=== PATIENT | female | born 1990 | race American Indian/Alaskan Native ===

== ENCOUNTER 2020-06-14 15:14 | Emergency (ER) | payer OTHER ==
[2020-06-14 15:27] VITALS: BP 159/95
[2020-06-14] MEDS ORDERED: KETOROLAC 60 MG/2 ML INJ IM ONE (15:41)
[2020-06-14] MEDS ORDERED: predniSONE 20 MG TAB PO ONE (15:41)
--- NOTE | 2020-06-14 16:21 | Emergency Department Report ---
ED Back Pain/Injury HPI - General Chief Complaint: Back Pain/Injury Stated Complaint: BACK PAIN Time Seen by Provider: 06/14/20 15:28 Source: patient Limitations: No Limitations - History of Present Illness Initial Comments: This is a 29-year-old female nontoxic, well nourished in appearance, no acute signs of distress presents to the ED with c/o of acute on chronic lower back pain. Patient stated that the past 2 days she was moving and developed this pain. Patient denies any radiation of pain. Patient denies any injuries or trauma. Denies any bladder or bowel instability. Patient denies any urinary symptoms. Denies any fever, chills, nausea, vomiting, headache, stiff neck, chest pain or shortness of breath. Patient denies any numbness or tingling. Denies any allergies. Denies significant past medical history. MD Complaint: back pain -: days(s) Similar Symptoms Previously: Yes Place: home Radiation: none Severity: mild Severity scale (0 -10): 3 Quality: aching Consistency: intermittent Improves With: immobilization, sitting upright Worsens With: movement, walking Context: while lifting, turning/twisting Associated Symptoms: denies other symptoms. denies: confusion, weakness, chest pain, numbness, difficulty walking, cough, difficulty urinating, diaphoresis, incontinence, fever/chills, constipation, headaches, abdominal pain, loss of appetite, malaise, nausea/vomiting, rash, seizure, shortness of breath, syncope - Related Data Previous Rx's Medication Instructions Recorded Last Taken Type Cyclobenzaprine [Flexeril] 10 mg PO QHS PRN #10 tablet 06/14/20 Unknown Rx Naproxen 500 mg PO Q12H PRN #12 tablet 06/14/20 Unknown Rx Allergies Allergy/AdvReac Type Severity Reaction Status Date / Time No Known Allergies Allergy Verified 06/14/20 15:22 ED Review of Systems ROS: Stated complaint: BACK PAIN Other details as noted in HPI Comment: All other systems reviewed and negative Constitutional: denies: chills, fever Eyes: denies: eye pain, eye discharge, vision change ENT: denies: ear pain, throat pain Respiratory: denies: cough, shortness of breath, wheezing Cardiovascular: denies: chest pain, palpitations Endocrine: no symptoms reported Gastrointestinal: denies: abdominal pain, nausea, diarrhea Genitourinary: denies: urgency, dysuria, discharge Musculoskeletal: back pain. denies: joint swelling, arthralgia Skin: denies: rash, lesions Neurological: denies: headache, weakness, paresthesias Psychiatric: denies: anxiety, depression Hematological/Lymphatic: denies: easy bleeding, easy bruising ED Past Medical Hx - Past Medical History Previous Medical History?: Yes Hx Hypertension: Yes Hx Diabetes: Yes - Surgical History Past Surgical History?: No - Social History Smoking Status: Never Smoker Substance Use Type: None - Medications Home Medications: Home Medications Medication Instructions Recorded Confirmed Last Taken Type Cyclobenzaprine [Flexeril] 10 mg PO QHS PRN #10 tablet 06/14/20 Unknown Rx Naproxen 500 mg PO Q12H PRN #12 tablet 06/14/20 Unknown Rx ED Physical Exam - General Limitations: No Limitations General appearance: alert, in no apparent distress - Head Head exam: Present: atraumatic, normocephalic - Eye Eye exam: Present: normal appearance - Neck Neck exam: Present: normal inspection, full ROM - Respiratory Respiratory exam: Absent: respiratory distress - Cardiovascular Cardiovascular Exam: Present: regular rate - GI/Abdominal GI/Abdominal exam: Present: soft. Absent: distended, tenderness - Extremities Exam Extremities exam: Present: normal inspection, full ROM - Back Exam Back exam: Present: normal inspection, full ROM. Absent: tenderness, CVA tenderness (R), CVA tenderness (L), muscle spasm, paraspinal tenderness, vertebral tenderness, rash noted - Expanded Back Exam Expanded Back exam: Absent: saddle anesthesia Back exam: Negative Straight Leg Raising: Right, Left - Neurological Exam Neurological exam: Present: alert, oriented X3, normal gait - Psychiatric Psychiatric exam: Present: normal affect, normal mood - Skin Skin exam: Present: warm, dry, intact, normal color. Absent: rash ED Course Vital Signs 06/14/20 06/14/20 15:25 15:53 Temperature 98.7 F Pulse Rate 95 H Respiratory 18 18 Rate Blood Pressure 159/95 O2 Sat by Pulse 98 Oximetry - Reevaluation(s) Reevaluation #1: 06/14/20 16:18 Patient is speaking in full sentences with no signs of distress noted. ED Medical Decision Making - Medical Decision Making This is a 29-year-old female that presents with low back strain. Patient is stable was examined by me. There is no spinal tenderness. There is no cauda equina syndrome during examination. No bladder or bowel instability. Patient received Toradol 60 mg IM and prednisone in the ED which stated that her symp toms has resolved and subsided. Patient is discharged with muscle relaxant and Motrin. Patient was instructed not to operate any machinery while taking muscle relaxant as they cause her drowsiness. Patient was referred to Follow-up with a primary care doctor in 3-5 days or if symptoms worsen and continue return to emergency room as soon as possible. At time of discharge, the patient does not seem toxic or ill in appearance. No acute signs of distress noted. Patient agrees to discharge treatment plan of care. No further questions noted by the patient. This chart is dictated with using [employer]ation [employer] Critical care attestation.: If time is entered above; I have spent that time in minutes in the direct care of this critically ill patient, excluding procedure time. ED Disposition Clinical Impression: Low back strain Qualifiers: Encounter type: initial encounter Qualified Code(s): S39.012A - Strain of muscle, fascia and tendon of lower back, initial encounter Disposition: TO HOME OR SELFCARE Is pt being admited?: No Does the pt Need Aspirin: No Condition: Stable Instructions: Lumbar Strain, Cyclobenzaprine tablets Additional Instructions: Follow-up with your primary care doctor in 3-5 days or if symptoms worsen such as bladder or bowel stability, chest pain, short of breath, numbness or tingling sensation in extremities, headache, dizziness, visual changes, nausea vomiting, or abdominal pain, return back to emergency room as was possible. Take naproxen and Flexeril as prescribed. Do not operate heavy machinery while taking Flexeril due to sedation Prescriptions: Cyclobenzaprine [Flexeril] 10 mg PO QHS PRN #10 tablet PRN Reason: Muscle Spasm Naproxen 500 mg PO Q12H PRN #12 tablet PRN Reason: Pain , Severe (7-10) Referrals: PRIMARY CAREMD [Referring] - 3-5 Days SAMMIE PONCE MD [Staff Physician] - 3-5 Days Time of Disposition: 16:21
== END 2020-06-14 16:55 | disposition home or self-care (01) ==
LOC: ED 15:14
DX: S39.012A Strain of muscle, fascia and tendon of lower back, initial encounter (principal); I10 Essential (primary) hypertension; E11.9 Type 2 diabetes mellitus without complications; Z79.899 Other long term (current) drug therapy; X58.XXXA Exposure to other specified factors, initial encounter; Y93.89 Activity, other specified; Y92.89 Other specified places as the place of occurrence of the external cause; Y99.8 Other external cause status
CPT/HCPCS: 96372; 99282; J1885; J7512

== ENCOUNTER 2020-07-05 03:55 | Emergency (ER) | payer OTHER ==
[2020-07-05] MEDS ORDERED: SODIUM CHLORIDE 0.9% 1000 ML 1,000 ML IV ONE (04:17)
[2020-07-05] MEDS ORDERED: FAMOTIDINE 20 MG/2 ML INJ IV ONE (04:26)
[2020-07-05] MEDS ORDERED: ONDANSETRON 4 MG/2 ML INJ IV ONE (04:26)
[2020-07-05] MEDS ORDERED: LIDOCAINE VISCOUS 2% 15 ML ORAL LIQD PO ONE (04:26)
[2020-07-05] MEDS ORDERED: ALUM-MAG HYDROXIDE-SIMETHICONE 200-200-20MG/5ML ORAL LIQD 30 ML PO ONE (04:26)
[2020-07-05 04:56] LABS: Hematocrit 37.6 % (30.3-42.9); Hemoglobin 11.8 gm/dl (10.1-14.3); Mean Corpuscular HGB Conc 31 % (30-34); Mean Corpuscular Volume 59 fl (79-97); Red Blood Count 6.42 M/mm3 (3.65-5.03)
[2020-07-05 04:57] LABS: Basophils # (Auto) 0.1 K/mm3 (0.0-0.1); Basophils % (Auto) 0.8 % (0.0-1.8); Eosinophils # (Auto) 0.1 K/mm3 (0.0-0.4); Lymphocytes # (Auto) 2.4 K/mm3 (1.2-5.4); Lymphocytes % (Auto) 21.9 % (13.4-35.0); Mean Platelet Volume 8.9 fl (6-12); Monocytes # (Auto) 0.6 K/mm3 (0.0-0.8); Monocytes % (Auto) 5.9 % (0.0-7.3); Platelet Count 331 K/mm3 (140-440); Red Cell Distribution Width 16.5 % (13.2-15.2)
[2020-07-05 05:19] LABS: Alanine Aminotransferase 190 units/L (7-56); BUN/Creatinine Ratio 14; Blood Urea Nitrogen 10 mg/dL (7-17)
[2020-07-05 05:20] LABS: Albumin 4.2 g/dL (3.9-5); Hemolysis Index 1
[2020-07-05 05:47] VITALS: BP 162/111
--- NOTE | 2020-07-05 06:41 | Emergency Department Report ---
<LOPEZNORBERTO DRUMMOND - Last Filed: 07/05/20 06:37> ED General Adult HPI - General Chief complaint: High BP Stated complaint: HIGH BP/HIGH BS Source: patient, EMS Mode of arrival: Ambulatory Limitations: No Limitations - History of Present Illness Initial comments: Patient is a 29-year-old -[place] female with a history of hypertension and [id number] diabetes and obesity who presents to the ED with complaint of acute onset persistent lightheadedness, headache, nausea and vomiting, generalized weakness for the last 6 hours. Patient states that prior to arrival in the ED, her symptoms got worse and she decided come to the ED suspecting that her blood sugar was elevated in as well as her blood pressure. Patient states that she has not taken her diabetes medications, Metformin, for over 1 month. Patient states that she had 2 episodes of nausea and vomiting in the last 3 hours and that she started having burning sensation in her epigastric area as well as in her throat suspecting therefore that her acid reflux was getting worse. Patient denies dizziness, syncope, chest pain, shortness of breath, fever, chills, cough, sore throat, diarrhea, dysuria, urinary frequency and urgency, numbness and tingling or weakness of upper and lower extremities bilaterally or hemoptysis. MD Complaint: Lightheadedness; nausea and vomiting, GERD symptoms -: Sudden Location: head, chest, abdomen Radiation: non-radiation Severity scale (0 -10): 4 Quality: aching Consistency: constant Improves with: none Worsens with: none Associated Symptoms: denies other symptoms, loss of appetite, malaise, nausea/vomiting. denies: confusion, chest pain, cough, diaphoresis, fever/chills, headaches, rash, seizure, shortness of breath, syncope, weakness Treatments Prior to Arrival: none - Related Data Previous Rx's Medication Instructions Recorded Last Taken Type Cyclobenzaprine [Flexeril] 10 mg PO QHS PRN #10 tablet 06/14/20 Unknown Rx Naproxen 500 mg PO Q12H PRN #12 tablet 06/14/20 Unknown Rx Famotidine [Pepcid] 20 mg PO BID #60 tablet 07/05/20 Unknown Rx Ondansetron [Zofran Odt] 4 mg PO Q6HR PRN #20 tab.rapdis 07/05/20 Unknown Rx amLODIPine 5 mg PO DAILY #30 tab 07/05/20 Unknown Rx metFORMIN [Glucophage] 1,000 mg PO BID #120 tablet 07/05/20 Unknown Rx Allergies Allergy/AdvReac Type Severity Reaction Status Date / Time No Known Allergies Allergy Verified 06/14/20 15:22 ED Review of Systems Constitutional: malaise. denies: chills, fever, weakness Eyes: denies: eye pain, eye discharge, vision change ENT: denies: ear pain, throat pain Respiratory: denies: cough, shortness of breath, wheezing Cardiovascular: denies: chest pain, palpitations Endocrine: no symptoms reported Gastrointestinal: abdominal pain (Epigastric discomfort), nausea, vomiting. denies: diarrhea Genitourinary: denies: urgency, dysuria, discharge Musculoskeletal: denies: back pain, joint swelling, arthralgia Skin: denies: rash, lesions Neurological: other (Lightheadedness). denies: headache, weakness, paresthesias Psychiatric: denies: anxiety, depression Hematological/Lymphatic: denies: easy bleeding, easy bruising ED Past Medical Hx - Past Medical History Previous Medical History?: Yes Hx Hypertension: Yes Hx Diabetes: Yes - Surgical History Past Surgical History?: Yes Additional Surgical History: tubaligation. hernai repair. left leg at age 9 - Social History Smoking Status: Never Smoker Substance Use Type: None - Medications Home Medications: Home Medications Medication Instructions Recorded Confirmed Last Taken Type Cyclobenzaprine [Flexeril] 10 mg PO QHS PRN #10 tablet 06/14/20 Unknown Rx Naproxen 500 mg PO Q12H PRN #12 tablet 06/14/20 Unknown Rx Famotidine [Pepcid] 20 mg PO BID #60 tablet 07/05/20 Unknown Rx Ondansetron [Zofran Odt] 4 mg PO Q6HR PRN #20 tab.rapdis 07/05/20 Unknown Rx amLODIPine 5 mg PO DAILY #30 tab 07/05/20 Unknown Rx metFORMIN [Glucophage] 1,000 mg PO BID #120 tablet 07/05/20 Unknown Rx ED Physical Exam - General Limitations: No Limitations General appearance: alert, in no apparent distress, anxious, obese - Head Head exam: Present: atraumatic, normocephalic, normal inspection - Eye Eye exam: Present: normal appearance, PERRL, EOMI Pupils: Present: normal accommodation - ENT ENT exam: Present: normal exam, normal orophraynx, mucous membranes moist, TM's normal bilaterally, normal external ear exam - Neck Neck exam: Present: normal inspection, full ROM - Respiratory Respiratory exam: Present: normal lung sounds bilaterally. Absent: respiratory distress, wheezes, rales, stridor, chest wall tenderness, accessory muscle use, decreased breath sounds - Cardiovascular Cardiovascular Exam: Present: regular rate, normal rhythm, normal heart sounds. Absent: systolic murmur, diastolic murmur, rubs, gallop - GI/Abdominal GI/Abdominal exam: Present: soft, normal bowel sounds. Absent: tenderness, guarding, rebound, hyperactive bowel sounds, hypoactive bowel sounds, organomegaly - Extremities Exam Extremities exam: Present: normal inspection, full ROM, normal capillary refill - Back Exam Back exam: Present: normal inspection, full ROM. Absent: tenderness, CVA tenderness (R), CVA tenderness (L), muscle spasm, paraspinal tenderness, vertebral tenderness - Neurological Exam Neurological exam: Present: alert, oriented X3, CN II-XII intact, normal gait, reflexes normal - Psychiatric Psychiatric exam: Present: normal affect, normal mood - Skin Skin exam: Present: warm, dry, intact, normal color. Absent: rash ED Medical Decision Making - Lab Data Result diagrams: 07/05/20 04:22 07/05/20 04:22 - Medical Decision Making This is a 29-year-old -[place] female with a history of hypertension and amg-[id number]-[id number] diabetes and obesity who presents to the ED with complaint of acute onset persistent lightheadedness, headache, nausea and vomiting, generalized weakness for the last 6 hours. Patient states that prior to arrival in the ED, her symptoms got worse and she decided come to the ED suspecting that her blood sugar was elevated in as well as her blood pressure. Patient states that she has not taken her diabetes medications, Metformin, for over 1 month. Patient states that she had 2 episodes of nausea and vomiting in the last 3 hours and that she started having burning sensation in her epigastric area as well as in her throat suspecting therefore that her acid reflux was getting worse. In the ED, patient is alert and oriented x3 and is not in distress. Patient was treated in the ED with antiemetics, antacids and also given normal saline 2 L IV bolus x1. Lab test results were reviewed and showed acute leukocytosis of 11,100, mild hyponatremia 135 mmol/L, hyperglycemia of 394 mg/dL elevated transaminases, AST of 122 and ALT of 190. On reevaluation, patient nausea and vomiting as well as lightheadedness resolved. Patient's final glucose was 276 mg/dL after 2 L of normal saline patientIV bolus. Patient was discharged home on medications including Metformin, antiemetics and antacids. Patient was advised to take her medications as prescribed, drink plen ty of fluids and follow-up with her primary care physician in 5 to 7 days for reevaluation. Patient was advised return to the ED immediately if symptoms get worse. Patient's care was transferred to Ms. Yuan Palmer PA-C at shift change at 0 [phone]. She shall review urinalysis test results and disposition the patient accordingly. - Differential Diagnosis Hyperglycemia; GERD; viral gastroenteritis; UTI; gallstones; dehydration ED Disposition Clinical Impression: Nausea and vomiting in adult patient, Uncontrolled stage 2 hypertension Hyperglycemia due to type 2 diabetes mellitus Qualifiers: Diabetes mellitus penitentiary insulin use: without material planning analyst use Qualified Code(s): E11.65 - Type 2 diabetes mellitus with hyperglycemia GERD (gastroesophageal reflux disease) Qualifiers: Esophagitis presence: esophagitis presence not specified Qualified Code(s): K21.9 - Gastro-esophageal reflux disease without esophagitis Disposition: DC-01 TO HOME OR SELFCARE Is pt being admited?: No Does the pt Need Aspirin: No Condition: Stable Instructions: Food Choices for Gastroesophageal Reflux Disease, Adult, [id number], Nausea and Vomiting, Adult, [id number], Type 2 Diabetes Mellitus, Self Care, Adult, [id number], Hypertension, Adult, [id number], Gastroesophageal Reflux Disease, Adult, [id number]-[id number], Diabetes Mellitus Type 2 in Adults (ED), Hypertension (ED) Additional Instructions: Take medications with food, drink plenty fluids and follow-up with your primary care physician in 7 to 10 days for reevaluation. Return to the ED immediately if symptoms get worse. Prescriptions: amLODIPine 5 mg PO DAILY #30 tab metFORMIN [Glucophage] 1,000 mg PO BID #120 tablet Famotidine [Pepcid] 20 mg PO BID #60 tablet Ondansetron [Zofran Odt] 4 mg PO Q6HR PRN #20 tab.rapdis PRN Reason: Nausea Referrals: [facility] [Provider Group] - 3-5 Days Time of Disposition: 06:49 Print Language: ANGUILLAN <YUAN PALMER - Last Filed: 07/05/20 12:35> ED Review of Systems ROS: Stated complaint: HIGH BP/HIGH BS Other details as noted in HPI ED Course Vital Signs 07/05/20 07/05/20 07/05/20 04:04 04:33 04:35 Temperature 98.2 F Pulse Rate 97 H 94 H Respiratory 18 17 Rate Blood Pressure Blood Pressure 151/99 157/104 [Right] O2 Sat by Pulse 97 98 Oximetry 07/05/20 07/05/20 07/05/20 04:45 05:01 05:15 Temperature Pulse Rate 91 H 87 85 Respiratory 12 20 20 Rate Blood Pressure 157/104 157/104 159/109 Blood Pressure [Right] O2 Sat by Pulse 99 98 96 Oximetry 07/05/20 07/05/20 05:31 05:45 Temperature Pulse Rate 86 83 Respiratory 12 17 Rate Blood Pressure 159/109 162/111 Blood Pressure [Right] O2 Sat by Pulse 98 98 Oximetry ED Medical Decision Making - Lab Data Result diagrams: 07/05/20 04:22 07/05/20 04:22 Lab Results 07/05/20 07/05/20 07/05/20 Range/Units 04:22 04:22 Unknown WBC 11.1 H (4.5-11.0) K/mm3 RBC 6.42 H (3.65-5.03) M/mm3 Hgb 11.8 (10.1-14.3) gm/dl Hct 37.6 (30.3-42.9) % MCV 59 L (79-97) fl MCH 18 L (28-32) pg MCHC 31 (30-34) % RDW 16.5 H (13.2-15.2) % Plt Count 331 (140-440) K/mm3 Lymph % (Auto) 21.9 (13.4-35.0) % [place] % (Auto) 5.9 (0.0-7.3) % Eos % (Auto) 1.0 (0.0-4.3) % Baso % (Auto) 0.8 (0.0-1.8) % Lymph # (Auto) 2.4 (1.2-5.4) K/mm3 [place] # (Auto) 0.6 (0.0-0.8) K/mm3 Eos # (Auto) 0.1 (0.0-0.4) K/mm3 Baso # (Auto) 0.1 (0.0-0.1) K/mm3 Add Manual Diff Complete Seg Neutrophils % 70.4 H (40.0-70.0) % Seg Neutrophils # 7.8 H (1.8-7.7) K/mm3 Sodium 135 L (137-145) mmol/L Potassium 4.1 (3.6-5.0) mmol/L Chloride 98.8 (98-107) mmol/L Carbon Dioxide 25 (22-30) mmol/L Anion Gap 15 mmol/L BUN 10 (7-17) mg/dL Creatinine 0.7 (0.6-1.2) mg/dL Estimated GFR > 60 ml/min BUN/Creatinine Ratio 14 % Glucose 394 H (65-100) mg/dL Calcium 9.0 (8.4-10.2) mg/dL Total Bilirubin 0.40 (0.1-1.2) mg/dL AST 122 H (5-40) units/L ALT 190 H (7-56) units/L Alkaline Phosphatase 85 (35-129) units/L Total Protein 7.8 (6.3-8.2) g/dL Albumin 4.2 (3.9-5) g/dL Albumin/Globulin Ratio 1.2 % Urine Color Yellow (Yellow) Urine Turbidity Clear (Clear) Urine pH 5.0 (5.0-7.0) Ur Specific [place] 1.030 (1.003-1.030) Urine Protein <15 mg/dl (Negative) mg/dL Urine Glucose (UA) >500 (Negative) mg/dL Urine Ketones Negative (Negative) mg/dL Urine Blood Negative (Negative) Urine Nitrite Negative (Negative) Urine Bilirubin Negative (Negative) Urine Urobilinogen < 2.0 (<2.0) mg/dL Ur Leukocyte Esterase Negative (Negative) Urine WBC (Auto) 1.0 (0.0-6.0) /HPF Urine RBC (Auto) 2.0 (0.0-6.0) /HPF U Epithel Cells (Auto) 2.0 (0-13.0) /HPF Urine HCG, Qual Negative (Negative) - Medical Decision Making Patient handed off to me pending UA results. No signs of UTI noted on UA. Blood pressure noted to be elevated, however patient has been off of her meds for 1 month. She denies any neurological symptoms. Refills of her medications provided. Strict return precautions were discussed in detail with patient who verbalized understanding Critical care attestation.: If time is entered above; I have spent that time in minutes in the direct care of this critically ill patient, excluding procedure time. ED Disposition Is pt being admited?: No
[2020-07-05 07:21] LABS: Bilirubin,Urine Negative (Negative); Blood,Urine Negative (Negative); Color,Urine Yellow (Yellow)
[2020-07-05 07:22] LABS: HCG Qualitative,Urine Negative (Negative); Protein,Urine <15 mg/dL mg/dL (Negative); Urobilinogen,Urine < 2.0 mg/dL (<2.0)
[2020-07-05 09:45] LABS: Mucus,Urine FEW /HPF
== END 2020-07-05 08:04 | disposition home or self-care (01) ==
LOC: ED 03:55
DX: E11.65 Type 2 diabetes mellitus with hyperglycemia (principal); K21.9 Gastro-esophageal reflux disease without esophagitis; I10 Essential (primary) hypertension; R11.2 Nausea with vomiting, unspecified; Z98.890 Other specified postprocedural states; Z79.899 Other long term (current) drug therapy
CPT/HCPCS: 36415; 80053; 81001; 81025; 82962; 85025; 96361; 96374; 96375; 99284; J2405; J7030

== ENCOUNTER 2020-09-05 10:08 | Emergency (ER) | payer OTHER ==
[2020-09-05 12:05] LABS: Basophils # (Auto) 0.1 K/mm3 (0.0-0.1); Basophils % (Auto) 0.5 % (0.0-1.8); Eosinophils # (Auto) 0.1 K/mm3 (0.0-0.4); Eosinophils % (Auto) 0.9 % (0.0-4.3); Hematocrit 40.1 % (30.3-42.9); Hemoglobin 12.6 gm/dl (10.1-14.3); Lymphocytes # (Auto) 3.8 K/mm3 (1.2-5.4); Lymphocytes % (Auto) 34.2 % (13.4-35.0); Mean Corpuscular HGB Conc 31 % (30-34); Monocytes # (Auto) 0.9 K/mm3 (0.0-0.8); Monocytes % (Auto) 7.6 % (0.0-7.3); Platelet Count 350 K/mm3 (140-440); Red Blood Count 6.83 M/mm3 (3.65-5.03); Red Cell Distribution Width 16.2 % (13.2-15.2)
[2020-09-05 12:08] LABS: Mean Corpuscular Volume 59 fl (79-97)
--- NOTE | 2020-09-05 12:32 | Emergency Department Report ---
ED Female HPI - General Chief complaint: Urogenital-Female Stated complaint: VAGINAL ITCHING/BURNING Time Seen by Provider: 09/05/20 10:52 Source: patient Mode of arrival: Ambulatory Limitations: No Limitations - History of Present Illness Initial comments: Patient is a 29-year-old female presents emergency room complaints of vaginal itching and burning that began 3 days ago. Patient is concerned that she may have a yeast infection and an outbreak of her genital herpes. She states that she has not been sexually active in several months and does not want prophylactic treatment for gonorrhea or chlamydia. She states that she has some mild lower abdominal discomfort. States that she also has some mild dysuria. She denies any fever, back pain, nausea, vomiting, diarrhea. past medical history of diabetes and hypertension. She reports that she takes 500 mg of metformin twice a day. She states that she takes amlodipine but is not sure of the dose. She has not followed up with her primary care doctor since March. She states that she checked her sugar last night and it was 400. She does not follow the diet for diabetes and currently has a Karina soda. No allergies to medications. - Related Data Previous Rx's Medication Instructions Recorded Last Taken Type Naproxen 500 mg PO Q12H PRN #12 tablet 06/14/20 Unknown Rx Famotidine [Pepcid] 20 mg PO BID #60 tablet 07/05/20 Unknown Rx amLODIPine 5 mg PO DAILY #30 tab 07/05/20 Unknown Rx Miconazole Nitrate [Miconazole 7] 45 gm VG QHS #7 cream.appl 09/05/20 Unknown Rx atenoloL [Tenormin] 25 mg PO DAILY #30 tab 09/05/20 Unknown Rx metFORMIN [Glucophage] 1,000 mg PO BID #120 tablet 09/05/20 Unknown Rx Allergies Allergy/AdvReac Type Severity Reaction Status Date / Time No Known Allergies Allergy Verified 06/14/20 15:22 ED Review of Systems ROS: Stated complaint: VAGINAL ITCHING/BURNING Other details as noted in HPI Comment: All other systems reviewed and negative ED Past Medical Hx - Past Medical History Previous Medical History?: Yes Hx Hypertension: Yes Hx Diabetes: Yes - Surgical History Past Surgical History?: Yes Additional Surgical History: tubaligation. hernai repair. left leg at age 9 - Social History Smoking Status: Never Smoker Substance Use Type: None - Medications Home Medications: Home Medications Medication Instructions Recorded Confirmed Last Taken Type Naproxen 500 mg PO Q12H PRN #12 tablet 06/14/20 09/05/20 Unknown Rx Famotidine [Pepcid] 20 mg PO BID #60 tablet 07/05/20 09/05/20 Unknown Rx amLODIPine 5 mg PO DAILY #30 tab 07/05/20 09/05/20 Unknown Rx Miconazole Nitrate [Miconazole 7] 45 gm VG QHS #7 cream.appl 09/05/20 Unknown Rx atenoloL [Tenormin] 25 mg PO DAILY #30 tab 09/05/20 Unknown Rx metFORMIN [Glucophage] 1,000 mg PO BID #120 tablet 09/05/20 Unknown Rx ED Physical Exam - General Limitations: No Limitations General appearance: alert, in no apparent distress - Head Head exam: Present: atraumatic, normocephalic - Eye Eye exam: Present: normal appearance - ENT ENT exam: Present: mucous membranes moist - Respiratory Respiratory exam: Present: normal lung sounds bilaterally. Absent: respiratory distress, wheezes, rales, rhonchi, stridor, chest wall tenderness, accessory muscle use, decreased breath sounds, prolonged expiratory - Cardiovascular Cardiovascular Exam: Present: regular rate, normal rhythm, normal heart sounds. Absent: systolic murmur, diastolic murmur, rubs, gallop - GI/Abdominal GI/Abdominal exam: Present: soft, tenderness (mild lower), normal bowel sounds. Absent: distended, guarding, rebound, rigid - External exam: Present: erythema, swelling (mild), other (pulley man: gerson wallace PA-C, no blistering or lesions or ulcerations). Absent: lesions, lacerations, ecchymosis, bleeding Speculum exam: Present: erythema, vaginal discharge (white), cervical discharge (white). Absent: vaginal bleeding, foreign body, tissue, laceration Bi-manual exam: Present: normal bi-manual exam. Absent: cervical motion tender sophia, adnexal tenderness, adnexal mass - Neurological Exam Neurological exam: Present: alert, oriented X3 - Psychiatric Psychiatric exam: Present: normal affect, normal mood - Skin Skin exam: Present: warm, dry, intact ED Course Vital Signs 09/05/20 09/05/20 09/05/20 10:50 14:30 15:00 Temperature 98 F Pulse Rate 107 H 114 H 105 H Respiratory 16 20 15 Rate Blood Pressure 159/102 157/96 Blood Pressure 180/128 [Right] O2 Sat by Pulse 98 97 98 Oximetry 09/05/20 09/05/20 09/05/20 15:26 15:30 16:00 Temperature Pulse Rate 108 H 101 H 110 H Respiratory 18 17 Rate Blood Pressure 156/96 161/98 150/96 Blood Pressure [Right] O2 Sat by Pulse 98 95 Oximetry 09/05/20 16:30 Temperature Pulse Rate 107 H Respiratory 22 Rate Blood Pressure 152/89 Blood Pressure [Right] O2 Sat by Pulse 98 Oximetry ED Medical Decision Making - Lab Data Result diagrams: 09/05/20 11:03 09/05/20 11:03 Lab Results 09/05/20 09/05/20 09/05/20 Range/Units 11:03 11:03 11:12 WBC 11.2 H (4.5-11.0) K/mm3 RBC 6.83 H (3.65-5.03) M/mm3 Hgb 12.6 (10.1-14.3) gm/dl Hct 40.1 (30.3-42.9) % MCV 59 L (79-97) fl MCH 18 L (28-32) pg MCHC 31 (30-34) % RDW 16.2 H (13.2-15.2) % Plt Count 350 (140-440) K/mm3 Lymph % (Auto) 34.2 (13.4-35.0) % [place] % (Auto) 7.6 H (0.0-7.3) % Eos % (Auto) 0.9 (0.0-4.3) % Baso % (Auto) 0.5 (0.0-1.8) % Lymph # (Auto) 3.8 (1.2-5.4) K/mm3 [place] # (Auto) 0.9 H (0.0-0.8) K/mm3 Eos # (Auto) 0.1 (0.0-0.4) K/mm3 Baso # (Auto) 0.1 (0.0-0.1) K/mm3 Seg Neutrophils % 56.8 (40.0-70.0) % Seg Neutrophils # 6.4 (1.8-7.7) K/mm3 VBG pH (7.320-7.420) Sodium 133 L (137-145) mmol/L Potassium 4.0 (3.6-5.0) mmol/L Chloride 92.2 L (98-107) mmol/L Carbon Dioxide 24 (22-30) mmol/L Anion Gap 21 mmol/L BUN 12 (7-17) mg/dL Creatinine 0.7 (0.6-1.2) mg/dL Estimated GFR > 60 ml/min BUN/Creatinine Ratio 17 % Glucose 499 H (65-100) mg/dL Calcium 9.9 (8.4-10.2) mg/dL Total Bilirubin 0.50 (0.1-1.2) mg/dL AST 91 H (5-40) units/L ALT 157 H (7-56) units/L Alkaline Phosphatase 140 H (35-129) units/L Total Protein 8.3 H (6.3-8.2) g/dL Albumin 4.3 (3.9-5) g/dL Albumin/Globulin Ratio 1.1 % Urine Color Straw (Yellow) Urine Turbidity Clear (Clear) Urine pH 5.0 (5.0-7.0) Ur Specific Mackey 1.032 H (1.003-1.030) Urine Protein <15 mg/dl (Negative) mg/dL Urine Glucose (UA) >=500 (Negative) mg/dL Urine Ketones Neg (Negative) mg/dL Urine Blood Neg (Negative) Urine Nitrite Neg (Negative) Urine Bilirubin Neg (Negative) Urine Urobilinogen < 2.0 (<2.0) mg/dL Ur Leukocyte Esterase Tr (Negative) Urine WBC (Auto) 3.0 (0.0-6.0) /HPF Urine RBC (Auto) 3.0 (0.0-6.0) /HPF U Epithel Cells (Auto) 2.0 (0-13.0) /HPF Urine Mucus Few /HPF Urine HCG, Qual Negative (Negative) 09/05/20 Range/Units 11:22 WBC (4.5-11.0) K/mm3 RBC (3.65-5.03) M/mm3 Hgb (10.1-14.3) gm/dl Hct (30.3-42.9) % MCV (79-97) fl MCH (28-32) pg MCHC (30-34) % RDW (13.2-15.2) % Plt Count (140-440) K/mm3 Lymph % (Auto) (13.4-35.0) % [place] % (Auto) (0.0-7.3) % Eos % (Auto) (0.0-4.3) % Baso % (Auto) (0.0-1.8) % Lymph # (Auto) (1.2-5.4) K/mm3 [place] # (Auto) (0.0-0.8) K/mm3 Eos # (Auto) (0.0-0.4) K/mm3 Baso # (Auto) (0.0-0.1) K/mm3 Seg Neutrophils % (40.0-70.0) % Seg Neutrophils # (1.8-7.7) K/mm3 VBG pH 7.366 (7.320-7.420) Sodium (137-145) mmol/L Potassium (3.6-5.0) mmol/L Chloride (98-107) mmol/L Carbon Dioxide (22-30) mmol/L Anion Gap mmol/L BUN (7-17) mg/dL Creatinine (0.6-1.2) mg/dL Estimated GFR ml/min BUN/Creatinine Ratio % Glucose (65-100) mg/dL Calcium (8.4-10.2) mg/dL Total Bilirubin (0.1-1.2) mg/dL AST (5-40) units/L ALT (7-56) units/L Alkaline Phosphatase (35-129) units/L Total Protein (6.3-8.2) g/dL Albumin (3.9-5) g/dL Albumin/Globulin Ratio % Urine Color (Yellow) Urine Turbidity (Clear) Urine pH (5.0-7.0) Ur Specific Mackey (1.003-1.030) Urine Protein (Negative) mg/dL Urine Glucose (UA) (Negative) mg/dL Urine Ketones (Negative) mg/dL Urine Blood (Negative) Urine Nitrite (Negative) Urine Bilirubin (Negative) Urine Urobilinogen (<2.0) mg/dL Ur Leukocyte Esterase (Negative) Urine WBC (Auto) (0.0-6.0) /HPF Urine RBC (Auto) (0.0-6.0) /HPF U Epithel Cells (Auto) (0-13.0) /HPF Urine Mucus /HPF Urine HCG, Qual (Negative) Vital Signs 09/05/20 09/05/20 09/05/20 10:50 14:30 15:00 Temperature 98 F Pulse Rate 107 H 114 H 105 H Respiratory 16 20 15 Rate Blood Pressure 159/102 157/96 Blood Pressure 180/128 [Right] O2 Sat by Pulse 98 97 98 Oximetry 09/05/20 09/05/20 09/05/20 15:26 15:30 16:00 Temperature Pulse Rate 108 H 101 H 110 H Respiratory 18 17 Rate Blood Pressure 156/96 161/98 150/96 Blood Pressure [Right] O2 Sat by Pulse 98 95 Oximetry 09/05/20 16:30 Temperature Pulse Rate 107 H Respiratory 22 Rate Blood Pressure 152/89 Blood Pressure [Right] O2 Sat by Pulse 98 Oximetry - Radiology Data Radiology results: report reviewed Ordering Physician: ESTRADA CONNER Date of Service: 09/05/20 Procedure(s): CT abdomen pelvis w con Accession Number(s): [id number] cc: ESTRADA CONNER CT ABDOMEN AND PELVIS WITH CONTRAST INDICATION / CLINICAL INFORMATION: lower abd pain, elevated LFTs. TECHNIQUE: Axial CT images were obtained through the abdomen and pelvis after 100 cc IV contrast. Sagittal and coronal reformatted images. All CT scans at this location are performed using CT dose reduction for ALARA by means of automated exposure control. COMPARISON: None available. FINDINGS: LOWER CHEST: No significant abnormality. LIVER: Mild hepatomegaly with steatosis. No focal lesion. GALLBLADDER: No significant abnormality. BILE DUCTS: No significant abnormality. PANCREAS: No significant abnormality. SPLEEN: No significant abnormality. ADRENALS: No significant abnormality. RIGHT KIDNEY and URETER: No significant abnormality. LEFT KIDNEY and URETER: No significant abnormality. STOMACH and SMALL BOWEL: No significant abnormality. COLON: No significant abnormality. APPENDIX: No significant abnormality. PERITONEUM: No free fluid. No free air. No fluid collection. LYMPH NODES: No significant adenopathy. AORTA and ARTERIES: No significant abnormality. IVC and VEINS: No significant abnormality. URINARY BLADDER: The bladder is mostly empty but grossly unremarkable. REPRODUCTIVE ORGANS: No significant abnormality. ADDITIONAL FINDINGS: None. SKELETAL SYSTEM: No significant abnormality. IMPRESSION: Mild hepatomegaly with steatosis. Otherwise unremarkable exam. No acute inflammatory process is appreciated. Signer Name: Duarte Sunshine Jr, MD Signed: 09/05/2020 3:25 PM Workstation Name: [id number] Transcribed By: TTR Dictated By: DUARTE SUNSHINE JR, MD Electronically Authenticated By: DUARTE SUNSHINE JR, MD Signed Date/Time: 09/05/201524 DD/ 22 TD/TT: - Medical Decision Making Patient is a 29-year-old female presents emergency room complaints of vaginal itching and burning that began 3 days ago. Patient is concerned that she may have a yeast infection and an outbreak of her genital herpes. She states that she has not been sexually active in several months and does not want prophylactic treatment for gonorrhea or chlamydia. She states that she has some mild lower abdominal discomfort. States that she also has some mild dysuria. She denies any fever, back pain, nausea, vomiting, diarrhea. past medical history of diabetes and hypertension. She reports that she takes 500 mg of metformin twice a day. She states that she takes amlodipine but is not sure of the dose. She has not followed up with her primary care doctor since March. She states that she checked her sugar last night and it was 400. She does not follow the diet for diabetes and currently has a Karina soda. No allergies to medications. Initial vitals with significantly elevated blood pressure, improved after medication administration. On exam she has some mild lower abdominal ttp, no guarding, no rigidity, no masses, no peritoneal signs. On pelvic examination she has erythema and mild swelling and white thick vaginal discharge, no CMT, no adnexal tenderness or masses. Labs with glucose of 499 and elevated LFTs. UA with evidence of UTI. Discussed case with Dr. Chris Hernandez, ER attending who advised to order CT abdomen pelvis with IV contrast. CT shows Mild hepatomegaly with steatosis. Otherwise unremarkable exam. No acute inflammatory process is appreciated. Patient given IV fluids and insulin with improvement of her blood glucose to 300. Wet prep with no acute process. G/C sent, patient declines G/C treatment at this time and will await her results. Advised she would need to go to medical records for results of these tests and if positive she would need further treatment. discussed the importance of follow up with pt. discussed strict return precautions. discussed dietary and lifestyle modifications with pt. given miconazole, metformin, atenolol. advised pt Please use medication as prescribed. Increase your fluid intake. Please eat a low sugar diet, do not drink sugary drinks, eat a low carbohydrate diet. Incorporate 30 to 60 minutes of daily exercise. Follow-up with a primary care doctor for better glycemic control. Follow-up with a GI doctor regarding the elevation in your liver numb ers. Return to emergency room for any new or worsening symptoms. Please stop taking amlodipine and begin taking atenolol. Please keep a blood pressure log. Please show this log to your primary care doctor. Critical care attestation.: If time is entered above; I have spent that time in minutes in the direct care of this critically ill patient, excluding procedure time. ED Disposition Clinical Impression: Vaginal itching, Vaginal burning, Hyperglycemia, Elevated LFTs, Hepatic steatosis, Hypertensive urgency Abdominal pain Qualifiers: Abdominal location: lower abdomen, unspecified Qualified Code(s): R10.30 - Lower abdominal pain, unspecified Disposition: - TO HOME OR SELFCARE Is pt being admited?: No Does the pt Need Aspirin: No Condition: Stable Instructions: Hyperglycemia, Carbohydrate Counting for Diabetes Mellitus, Adult, Blood Glucose Monitoring, Adult, Diabetes Mellitus and Exercise Additional Instructions: Please use medication as prescribed. Increase your fluid intake. Please eat a low sugar diet, do not drink sugary drinks, eat a low carbohydrate diet. Incorporate 30 to 60 minutes of daily exercise. Follow-up with a primary care doctor for better glycemic control. Follow-up with a GI doctor regarding the elevation in your liver numbers. Return to emergency room for any new or worsening symptoms. Please stop taking amlodipine and begin taking atenolol. Please keep a blood pressure log. Please show this log to your primary care doctor. Prescriptions: Miconazole Nitrate [Miconazole 7] 45 gm VG QHS #7 cream.appl metFORMIN [Glucophage] 1,000 mg PO BID #120 tablet atenoloL [Tenormin] 25 mg PO DAILY #30 tab Referrals: PRIMARY MD CHARLA [Primary Care Provider] - 2-3 Days SAMMIE PONCE MD [Staff Physician] - 2-3 Days [facility] [Provider Group] - 2-3 Days [facility] [Provider Group] - 2-3 Days Time of Disposition: 17:10 Print Language: PERUVIAN
[2020-09-05 12:33] LABS: Alanine Aminotransferase 157 units/L (7-56); Albumin 4.3 g/dL (3.9-5); BUN/Creatinine Ratio 17; Blood Urea Nitrogen 12 mg/dL (7-17); Calcium 9.9 mg/dL (8.4-10.2); Hemolysis Index 0
[2020-09-05] MEDS ORDERED: INSULIN REGULAR, HUMAN 100 UNITS/1 ML IV ONE (12:37)
[2020-09-05] MEDS ORDERED: SODIUM CHLORIDE 0.9% 1000 ML 1,000 ML IV ONE (12:37)
[2020-09-05 12:44] LABS: Bilirubin,Urine NEG (Negative); Blood,Urine NEG (Negative); Color,Urine Straw (Yellow); Mucus,Urine FEW /HPF; Protein,Urine <15 mg/dL mg/dL (Negative); Urobilinogen,Urine < 2.0 mg/dL (<2.0)
[2020-09-05 12:58] LABS: HCG Qualitative,Urine Negative (Negative)
[2020-09-05] MEDS ORDERED: INSULIN REGULAR, HUMAN 100 UNITS/1 ML ONE (15:05)
--- NOTE | 2020-09-05 15:30 | Cat Scan Report ---
CT ABDOMEN AND PELVIS WITH CONTRAST INDICATION / CLINICAL INFORMATION: lower abd pain, elevated LFTs. TECHNIQUE: Axial CT images were obtained through the abdomen and pelvis after 100 cc IV contrast. Sagittal and c oronal reformatted images. All CT scans at this location are performed using CT dose reduction for AL GERDA by means of automated exposure control. COMPARISON: None available. FINDINGS: LOWER CHEST: No significant abnormality. LIVER: Mild hepatomegaly with steatosis. No focal lesion. GALLBLADDER: No significant abnormality. BILE DUCTS: No significant abnormality. PANCREAS: No significant abnormality. SPLEEN: No significant abnormality. ADRENALS: No significant abnormality. RIGHT KIDNEY and URETER: No significant abnormality. LEFT KIDNEY and URETER: No significant abnormality. STOMACH and SMALL BOWEL: No significant abnormality. COLON: No significant abnormality. APPENDIX: No significant abnormality. PERITONEUM: No free fluid. No free air. No fluid collection. LYMPH NODES: No significant adenopathy. AORTA and ARTERIES: No significant abnormality. IVC and VEINS: No significant abnormality. URINARY BLADDER: The bladder is mostly empty but grossly unremarkable. REPRODUCTIVE ORGANS: No significant abnormality. ADDITIONAL FINDINGS: None. SKELETAL SYSTEM: No significant abnormality. IMPRESSION: Mild hepatomegaly with steatosis. Otherwise unremarkable exam. No acute inflammatory process is appr eciated. Signer Name: Duarte Sunshine Jr, MD Signed: 09/05/2020 3:25 PM Workstation Name: [id number]
[2020-09-05 16:32] VITALS: BP 152/89
== END 2020-09-05 18:08 | disposition home or self-care (01) ==
LOC: ED 10:08
DX: E11.65 Type 2 diabetes mellitus with hyperglycemia (principal); K76.0 Fatty (change of) liver, not elsewhere classified; R79.89 Other specified abnormal findings of blood chemistry; I16.0 Hypertensive urgency; L29.9 Pruritus, unspecified; R10.30 Lower abdominal pain, unspecified; Z98.890 Other specified postprocedural states; Z79.84 Long term (current) use of oral hypoglycemic drugs; Z79.899 Other long term (current) drug therapy
CPT/HCPCS: 36415; 74177; 80053; 81001; 81025; 82805; 82962; 85025; 87210; 87591; 96361; 96374; 99285; J7030; Q9967; J1815

== ENCOUNTER 2020-09-20 22:25 | Emergency (ER) | payer OTHER ==
--- NOTE | 2020-09-21 03:00 | Emergency Department Report ---
ED General Adult HPI - General Chief complaint: Neck Pain/Injury Stated complaint: LUMP ON NECK/ Time Seen by Provider: 09/21/20 02:49 Source: patient Mode of arrival: Ambulatory Limitations: No Limitations - History of Present Illness Initial comments: 30-year-old female patient with history of diabetes presents to the emergency department with complaints of painful swelling to the right side of her neck starting 2 days ago. No preceding fall, trauma, or injury. No current steroid or antibiotic use. No recent travel. Patient has not taken any medications. No known sick contacts. Denies fever, chills, neck stiffness, rash, sore throat, purulent drainage. Denies all other complaints at this time. - Related Data Previous Rx's Medication Instructions Recorded Last Taken Type Naproxen 500 mg PO Q12H PRN #12 tablet 06/14/20 Unknown Rx Famotidine [Pepcid] 20 mg PO BID #60 tablet 07/05/20 Unknown Rx amLODIPine 5 mg PO DAILY #30 tab 07/05/20 Unknown Rx Miconazole Nitrate [Miconazole 7] 45 gm VG QHS #7 cream.appl 09/05/20 Unknown Rx atenoloL [Tenormin] 25 mg PO DAILY #30 tab 09/05/20 Unknown Rx metFORMIN [Glucophage] 1,000 mg PO BID #120 tablet 09/05/20 Unknown Rx cephALEXin [Keflex] 500 mg PO Q8HR 5 Days cap 09/21/20 Unknown Rx Allergies Allergy/AdvReac Type Severity Reaction Status Date / Time No Known Allergies Allergy Verified 06/14/20 15:22 ED Review of Systems ROS: Stated complaint: LUMP ON NECK/ Other details as noted in HPI Other: GENERAL: Negative for fever. CARDIOVASCULAR: Negative for chest pain. PULMONARY: Negative for shortness of breath. GASTROINTESTINAL: Negative for abdominal pain. MUSCULOSKELETAL: Negative for back pain. NEUROLOGICAL: Negative for headache. INTEGUMENTARY: Positive for painful swelling ED Past Medical Hx - Past Medical History Previous Medical History?: Yes Hx Hypertension: Yes Hx Diabetes: Yes - Surgical History Past Surgical History?: Yes Additional Surgical History: tubaligation. hernai repair. left leg at age 9 - Social History Smoking Status: Current Every Day Smoker Substance Use Type: None - Medications Home Medications: Home Medications Medication Instructions Recorded Confirmed Last Taken Type Naproxen 500 mg PO Q12H PRN #12 tablet 06/14/20 09/05/20 Unknown Rx Famotidine [Pepcid] 20 mg PO BID #60 tablet 07/05/20 09/05/20 Unknown Rx amLODIPine 5 mg PO DAILY #30 tab 07/05/20 09/05/20 Unknown Rx Miconazole Nitrate [Miconazole 7] 45 gm VG QHS #7 cream.appl 09/05/20 Unknown Rx atenoloL [Tenormin] 25 mg PO DAILY #30 tab 09/05/20 Unknown Rx metFORMIN [Glucophage] 1,000 mg PO BID #120 tablet 09/05/20 Unknown Rx cephALEXin [Keflex] 500 mg PO Q8HR 5 Days cap 09/21/20 Unknown Rx ED Physical Exam - General Limitations: No Limitations - Other Other exam information: General: Awake, appropriately interactive, no acute distress. Neck: Supple. Full range of motion intact. Cardiovascular: Normal peripheral perfusion. Pulmonary: No respiratory distress. Patient is speaking normally without use of accessory muscles. Skin: Small papule noted to the right anterior neck with minimal surrounding erythema. No fluctuance. No purulent drainage. No regional lymphadenopathy. No crepitus. No streaking erythema. Neurological: No facial asymmetry. Speech is clear. Follows commands. Patient is alert and oriented. Musculoskeletal: Moves all four extremities spontaneously with normal range of motion. Psych: Cooperative. Appropriate mood and affect. ED Course Vital Signs 09/20/20 09/21/20 23:52 03:19 Temperature 98.6 F 98.2 F Pulse Rate 92 H 76 Respiratory 16 16 Rate Blood Pressure 158/106 Blood Pressure 152/85 [Left] O2 Sat by Pulse 99 100 Oximetry ED Medical Decision Making - Medical Decision Making Differential diagnosis including but not limited to: abscess, cellulitis, insect bite, necrotizing soft tissue infection, mumps, tinea corporis Patient presents to the emergency department with complaints of painful swelling to the right side of her neck. She is afebrile, hemodynamically stable, no respiratory distress. There is no regional lymphadenopathy. Pain is appropriately proportional to exam findings. History and exam findings suggestive of nonpurulent cellulitis. Suspect the infection may have started as an insect bite. No MRSA risk factors identified on history. Patient will be discharged home with Keflex per current IDSA guidelines and referred to primary care provider for close outpatient follow-up. Patient expressed understanding and is agreeable to plan of care. Strict return precautions provided. History, exam, diagnostic testing, and current condition do not suggest worrisome pathology to warrant further testing, continued ED treatment, admission, or surgical evaluation at this point. Given the low probability of a significant medical illness, it would be more likely to result in harm than benefit to perform further testing at this stage. Discussed findings, presumptive diagnosis, need for follow-up and specific signs/symptoms that should prompt immediate return to the emergency department. Instructions were explained in detail to the patient in addition to giving written discharge information. Patient expressed understanding and was given the opportunity to ask questions, all of which were satisfactorily answered prior to discharge home. Critical care attestation.: If time is entered above; I have spent that time in minutes in the direct care of this critically ill patient, excluding procedure time. ED Disposition Clinical Impression: Cellulitis, neck Disposition: DC-01 TO HOME OR SELFCARE Is pt being admited?: No Does the pt Need Aspirin: No Condition: Stable Instructions: Cellulitis, Adult Additional Instructions: Take Tylenol every 4 hours and Motrin every 8 hours as needed for pain. Take Keflex with food as directed. Increase your dietary intake of probiotic rich foods while taking his medications. Apply warm compresses to affected area. Follow-up with primary care provider this week. Call Wednesday to schedule an appointment. See referral information below. Return to the emergency department immediately for new or worsening symptoms. Prescriptions: cephALEXin [Keflex] 500 mg PO Q8HR 5 Days cap Referrals: SAMMIE PONCE MD [Staff Physician] - 3-5 Days [facility] [Outside] - 3-5 Days [facility] [Outside] - 3-5 Days [facility] [Outside] - 3-5 Days [facility] [Provider Group] - 3-5 Days Time of Disposition: 03:02
[2020-09-21 03:20] VITALS: BP 152/85
== END 2020-09-21 03:21 | disposition home or self-care (01) ==
LOC: ED 22:25
DX: L03.221 Cellulitis of neck (principal); I10 Essential (primary) hypertension; E11.9 Type 2 diabetes mellitus without complications; F17.200 Nicotine dependence, unspecified, uncomplicated; Z98.51 Tubal ligation status; Z98.890 Other specified postprocedural states; Z79.84 Long term (current) use of oral hypoglycemic drugs; Z79.899 Other long term (current) drug therapy
CPT/HCPCS: 99282

== ENCOUNTER 2020-12-21 22:40 | Emergency (ER) | payer MEDICAID, OTHER ==
[2020-12-21 23:54] VITALS: BP 151/106
[2020-12-22] MEDS ORDERED: ACETAMINOPHEN 500 MG TAB PO ONE (00:38)
[2020-12-22 00:56] LABS: Basophils # (Auto) 0.1 K/mm3 (0.0-0.1); Basophils % (Auto) 0.7 % (0.0-1.8); Eosinophils # (Auto) 0.2 K/mm3 (0.0-0.4); Eosinophils % (Auto) 1.7 % (0.0-4.3); Hematocrit 38.4 % (30.3-42.9); Hemoglobin 12.1 gm/dl (10.1-14.3); Lymphocytes # (Auto) 3.4 K/mm3 (1.2-5.4); Lymphocytes % (Auto) 33.9 % (13.4-35.0); Mean Corpuscular HGB Conc 31 % (30-34); Monocytes # (Auto) 0.8 K/mm3 (0.0-0.8); Monocytes % (Auto) 7.7 % (0.0-7.3); Platelet Count 312 K/mm3 (140-440); Red Blood Count 6.54 M/mm3 (3.65-5.03); Red Cell Distribution Width 16.2 % (13.2-15.2)
[2020-12-22 00:59] LABS: Mean Corpuscular Volume 59 fl (79-97)
[2020-12-22 01:19] LABS: Alanine Aminotransferase 190 units/L (7-56); Albumin 4.1 g/dL (3.9-5); Blood Urea Nitrogen 9 mg/dL (7-17); Calcium 9.6 mg/dL (8.4-10.2); Hemolysis Index 6
[2020-12-22 01:22] LABS: BUN/Creatinine Ratio 13
[2020-12-22 02:08] LABS: Bacteria,Urine 1+ /HPF (Negative); Bilirubin,Urine NEG (Negative); Blood,Urine LG (Negative); Color,Urine Amber (Yellow); Mucus,Urine FEW /HPF; Urobilinogen,Urine < 2.0 mg/dL (<2.0)
[2020-12-22 02:10] LABS: HCG Qualitative,Urine Negative (Negative); RBC,Urine > 182.0 /HPF (0.0-6.0)
[2020-12-22] MEDS ORDERED: cephALEXin 500 MG CAP PO ONE (02:21)
--- NOTE | 2020-12-22 02:26 | Emergency Department Report ---
ED Female HPI - General Chief complaint: Vaginal Bleeding Stated complaint: CRAMPING AND BLEEDING,? Source: patient Mode of arrival: Ambulatory Limitations: No Limitations - History of Present Illness Initial comments: Patient is a A1 30-year-old -[place] female with past medical history of jip-[id number] diabetes who presents to the ED with complaint of acute onset persistent pelvic and suprapubic pain for the last 3 days and vaginal bleeding for the last 12 hours. Patient states that her LMP was 11/06/2020. Patient states that the pain is constant, sharp and worse with movement. Patient states that she had a positive urine qualitative hCG test at home 2 days ago. Patient states that she came to the ED for evaluation as to whether she may be having a miscarriage. Patient denies dizziness, syncope, fever, chills, nausea, vomiting, dyspareunia, urinary frequency and urgency, low back pain, chest pain or shortness of breath and sore throat. MD Complaint: vaginal bleeding, pelvic pain -: Sudden, days(s) (2) Location: suprapubic Radiation: non-radiating Severity: severe Severity scale (0 -10): 7 Quality: sharp, aching Consistency: constant Improves with: none Worsens with: movement Are you Now?: Yes (Positive urine hCG test at home) Last Menstrual Period: 12/06/20 EDC: 09/12/21 Associated Symptoms: denies other symptoms, vaginal bleeding, abdominal pain (Suprapubic pain). denies: vaginal discharge, nausea/vomiting, fever/chills, headaches, loss of appetite, dysuria, hematuria, rash, seizure, shortness of breath, syncope, weakness - Related Data Sexually active: Yes : 4 Para: 3 A: 1 Previous Rx's Medication Instructions Recorded Last Taken Type Naproxen 500 mg PO Q12H PRN #12 tablet 06/14/20 Unknown Rx Famotidine [Pepcid] 20 mg PO BID #60 tablet 07/05/20 Unknown Rx amLODIPine 5 mg PO DAILY #30 tab 07/05/20 Unknown Rx Miconazole Nitrate [Miconazole 7] 45 gm VG QHS #7 cream.appl 09/05/20 Unknown Rx atenoloL [Tenormin] 25 mg PO DAILY #30 tab 09/05/20 Unknown Rx metFORMIN [Glucophage] 1,000 mg PO BID #120 tablet 09/05/20 Unknown Rx cephALEXin [Keflex] 500 mg PO Q8HR 5 Days cap 09/21/20 Unknown Rx Ibuprofen [Motrin] 800 mg PO Q8HR PRN #30 tablet 12/22/20 Unknown Rx cephALEXin [Keflex] 500 mg PO Q8HR #30 cap 12/22/20 Unknown Rx Allergies Allergy/AdvReac Type Severity Reaction Status Date / Time No Known Allergies Allergy Verified 06/14/20 15:22 ED Review of Systems ROS: Stated complaint: CRAMPING AND BLEEDING,? Other details as noted in HPI Constitutional: denies: chills, fever Eyes: denies: eye pain, eye discharge, vision change ENT: denies: ear pain, throat pain Respiratory: denies: cough, shortness of breath, wheezing Cardiovascular: denies: chest pain, palpitations Endocrine: no symptoms reported Gastrointestinal: abdominal pain (Suprapubic pain). denies: nausea, vomiting, diarrhea Genitourinary: abnormal menses (Vaginal bleeding). denies: urgency, dysuria, frequency, hematuria, discharge, dyspareunia Musculoskeletal: denies: back pain, joint swelling, arthralgia Skin: denies: rash, lesions Neurological: denies: headache, weakness, paresthesias Psychiatric: denies: anxiety, depression Hematological/Lymphatic: denies: easy bleeding, easy bruising ED Past Medical Hx - Past Medical History Previous Medical History?: Yes Hx Hypertension: Yes Hx Diabetes: Yes - Surgical History Past Surgical History?: Yes Additional Surgical History: tubaligation. hernai repair. left leg at age 9 - Social History Smoking Status: Current Every Day Smoker Substance Use Type: None - Medications Home Medications: Home Medications Medication Instructions Recorded Confirmed Last Taken Type Naproxen 500 mg PO Q12H PRN #12 tablet 06/14/20 09/05/20 Unknown Rx Famotidine [Pepcid] 20 mg PO BID #60 tablet 07/05/20 09/05/20 Unknown Rx amLODIPine 5 mg PO DAILY #30 tab 07/05/20 09/05/20 Unknown Rx Miconazole Nitrate [Miconazole 7] 45 gm VG QHS #7 cream.appl 09/05/20 Unknown Rx atenoloL [Tenormin] 25 mg PO DAILY #30 tab 09/05/20 Unknown Rx metFORMIN [Glucophage] 1,000 mg PO BID #120 tablet 09/05/20 Unknown Rx cephALEXin [Keflex] 500 mg PO Q8HR 5 Days cap 09/21/20 Unknown Rx Ibuprofen [Motrin] 800 mg PO Q8HR PRN #30 tablet 12/22/20 Unknown Rx cephALEXin [Keflex] 500 mg PO Q8HR #30 cap 12/22/20 Unknown Rx ED Physical Exam - General Limitations: No Limitations General appearance: alert, in no apparent distress - Head Head exam: Present: atraumatic, normocephalic, normal inspection - Eye Eye exam: Present: normal appearance, PERRL, EOMI Pupils: Present: normal accommodation - ENT ENT exam: Present: normal exam, normal orophraynx, mucous membranes moist, TM's normal bilaterally, normal external ear exam - Neck Neck exam: Present: normal inspection, full ROM - Respiratory Respiratory exam: Present: normal lung sounds bilaterally. Absent: respiratory distress, wheezes, rales, chest wall tenderness, accessory muscle use, decreased breath sounds, prolonged expiratory - Cardiovascular Cardiovascular Exam: Present: regular rate, normal rhythm, normal heart sounds. Absent: systolic murmur, diastolic murmur, rubs, gallop - GI/Abdominal GI/Abdominal exam: Present: soft, tenderness (Palpable mild suprapubic tenderness), normal bowel sounds. Absent: guarding, rebound, hyperactive bowel sounds, hypoactive bowel sounds, mass, pulsatile mass - Bi-manual exam: Present: other (Pelvic examination deferred at this time) - Extremities Exam Extremities exam: Present: normal inspection, full ROM, normal capillary refill - Back Exam Back exam: Present: normal inspection, full ROM. Absent: tenderness, CVA tenderness (L), muscle spasm, paraspinal tenderness - Neurological Exam Neurological exam: Present: alert, oriented X3, CN II-XII intact, normal gait, reflexes normal - Psychiatric Psychiatric exam: Present: normal affect, normal mood - Skin Skin exam: Present: warm, dry, intact, normal color. Absent: rash ED Course Vital Signs 12/21/20 23:53 Temperature 98.2 F Pulse Rate 84 Respiratory 18 Rate Blood Pressure 151/106 [Right] O2 Sat by Pulse 99 Oximetry ED Medical Decision Making - Lab Data Result diagrams: 12/22/20 00:40 12/22/20 00:40 - Medical Decision Making This is a A1 30-year-old -[place] female with past medical history of sua-febrygs-jwigknfhw diabetes who presents to the ED with complaint of acute onset persistent pelvic and suprapubic pain for the last 3 days and vaginal bleeding for the last 12 hours. Patient states that her LMP was 11/06/2020. Patient states that the pain is constant, sharp and worse with movement. Patient states that she had a positive urine qualitative hCG test at home 2 days ago. Patient states that she came to the ED for evaluation as to whether she may be having a miscarriage. In the ED, patient is alert and oriented x3 and is not in any distress. Patient was treated for pain in the ED with Tylenol. All lab test results were reviewed and serum hCG quant was negative. Urinalysis showed significant urinary tract infection with positive nitrites, >44 WBCs and large amount of blood, and 1+ bacteriuria. Patient was also given initial oral antibiotic in the ED Keflex 1 g p.o. x1. On reevaluation, patient's pain is well controlled medications. Patient discharged home on pain medications and advised to follow-up with her primary care physician or [facility] physician in 7 to 10 days for reevaluation or return to the ED immediately if symptoms get worse. - Differential Diagnosis Dysmenorrhea; ; ovarian cyst; UTI; subchorionic bleed Critical care attestation.: If time is entered above; I have spent that time in minutes in the direct care of this critically ill patient, excluding procedure time. ED Disposition Clinical Impression: Severe dysmenorrhea, Acute urinary tract infection, Negative test Disposition: 01 HOME / SELF CARE / HOMELESS Is pt being admited?: No Does the pt Need Aspirin: No Condition: Stable Instructions: Urinary Tract Infection, Adult, Jagj-[id number], Dysmenorrhea, [id number] Additional Instructions: All lab test results were reviewed and are all nonactionable except for urinalysis that showed significant urinary tract infection. Your urine test was negative, and serum hCG quantitative test was also negative. Therefore your symptoms are likely due to dysmenorrhea or urinary tract infection. Therefore take medications as needed for pain, take the antibiotics until finished, and follow-up with your primary care physician or [facility] [employer] physici an in 7 to 10 days for reevaluation. Return to the ED immediately if symptoms get worse. Prescriptions: cephALEXin [Keflex] 500 mg PO Q8HR #30 cap Ibuprofen [Motrin] 800 mg PO Q8HR PRN #30 tablet PRN Reason: Pain , Severe (7-10) Referrals: [facility] [Provider Group] - 7-10 days Time of Disposition: 02:29 Print Language: IRISH
== END 2020-12-22 04:06 | disposition home or self-care (01) ==
LOC: ED 22:40
DX: N94.6 Dysmenorrhea, unspecified (principal); N39.0 Urinary tract infection, site not specified; Z32.02 Encounter for pregnancy test, result negative; I10 Essential (primary) hypertension; E11.8 Type 2 diabetes mellitus with unspecified complications
CPT/HCPCS: 36415; 80053; 81001; 81025; 84702; 85025; 86900; 86901; 87086; 99283

== ENCOUNTER 2021-01-28 07:57 | Emergency (ER) | payer MEDICAID ==
[2021-01-28 08:05] VITALS: BP 148/99
--- NOTE | 2021-01-28 08:10 | Emergency Department Report ---
ED Extremity Problem HPI - General Chief complaint: Extremity Injury, Lower Stated complaint: FALL Time Seen by Provider: 01/28/21 08:00 Source: patient Mode of arrival: Ambulatory Limitations: Physical Limitation - History of Present Illness Initial comments: Is a pleasant 30-year-old female who presents the emergency department chief complaint of left lateral and anterior ankle pain since this morning. She reports she was running to try and catch the bus when she stepped in a pothole and inverted her left ankle. States she has been having pain when she ambulates or bears weight since. She denies any other injuries. Denies hitting her head or losing consciousness. She rates severity of her pain is a 5 out of 10 describes as dull and throbbing. She denies any associated fever, chills, night sweats, headache, dizziness, blurry vision, nausea, vomiting, diarrhea, chest pain, shortness of breath, weakness or any other associated symptoms. - Related Data Previous Rx's Medication Instructions Recorded Last Taken Type Naproxen 500 mg PO Q12H PRN #12 tablet 06/14/20 Unknown Rx Famotidine [Pepcid] 20 mg PO BID #60 tablet 07/05/20 Unknown Rx amLODIPine 5 mg PO DAILY #30 tab 07/05/20 Unknown Rx Miconazole Nitrate [Miconazole 7] 45 gm VG QHS #7 cream.appl 09/05/20 Unknown Rx atenoloL [Tenormin] 25 mg PO DAILY #30 tab 09/05/20 Unknown Rx metFORMIN [Glucophage] 1,000 mg PO BID #120 tablet 09/05/20 Unknown Rx cephALEXin [Keflex] 500 mg PO Q8HR 5 Days cap 09/21/20 Unknown Rx Ibuprofen [Motrin] 800 mg PO Q8HR PRN #30 tablet 12/22/20 Unknown Rx cephALEXin [Keflex] 500 mg PO Q8HR #30 cap 12/22/20 Unknown Rx Naproxen 500 mg PO BID #20 tablet 01/28/21 Unknown Rx Allergies Allergy/AdvReac Type Severity Reaction Status Date / Time No Known Allergies Allergy Verified 01/28/21 08:02 ED Review of Systems ROS: Stated complaint: FALL Other details as noted in HPI Comment: All other systems reviewed and negative Constitutional: denies: chills, fever Eyes: denies: eye pain, eye discharge, vision change ENT: denies: ear pain, throat pain Respiratory: denies: cough, shortness of breath, wheezing Cardiovascular: denies: chest pain, palpitations Endocrine: no symptoms reported Gastrointestinal: denies: abdominal pain, nausea, diarrhea Genitourinary: denies: urgency, dysuria, discharge Musculoskeletal: as per HPI, arthralgia. denies: back pain, joint swelling Skin: denies: rash, lesions Neurological: denies: headache, weakness, paresthesias Psychiatric: denies: anxiety, depression Hematological/Lymphatic: denies: easy bleeding, easy bruising ED Past Medical Hx - Past Medical History Hx Hypertension: Yes Hx Diabetes: Yes - Surgical History Additional Surgical History: tubaligation. hernai repair. left leg at age 9 - Social History Smoking Status: Current Every Day Smoker Substance Use Type: None - Medications Home Medications: Home Medications Medication Instructions Recorded Confirmed Last Taken Type Naproxen 500 mg PO Q12H PRN #12 tablet 06/14/20 09/05/20 Unknown Rx Famotidine [Pepcid] 20 mg PO BID #60 tablet 07/05/20 09/05/20 Unknown Rx amLODIPine 5 mg PO DAILY #30 tab 07/05/20 09/05/20 Unknown Rx Miconazole Nitrate [Miconazole 7] 45 gm VG QHS #7 cream.appl 09/05/20 Unknown Rx atenoloL [Tenormin] 25 mg PO DAILY #30 tab 09/05/20 Unknown Rx metFORMIN [Glucophage] 1,000 mg PO BID #120 tablet 09/05/20 Unknown Rx cephALEXin [Keflex] 500 mg PO Q8HR 5 Days cap 09/21/20 Unknown Rx Ibuprofen [Motrin] 800 mg PO Q8HR PRN #30 tablet 12/22/20 Unknown Rx cephALEXin [Keflex] 500 mg PO Q8HR #30 cap 12/22/20 Unknown Rx Naproxen 500 mg PO BID #20 tablet 01/28/21 Unknown Rx ED Physical Exam - General Limitations: Physical Limitation General appearance: alert, in no apparent distress - Head Head exam: Present: atraumatic, normocephalic - Eye Eye exam: Present: normal appearance, PERRL, EOMI Pupils: Present: normal accommodation - ENT ENT exam: Present: normal exam, normal orophraynx, mucous membranes moist - Neck Neck exam: Present: normal inspection, full ROM. Absent: tenderness, meningismus - Respiratory Respiratory exam: Present: normal lung sounds bilaterally. Absent: respiratory distress, wheezes, rales, rhonchi, stridor, chest wall tenderness - Cardiovascular Cardiovascular Exam: Present: regular rate, normal rhythm. Absent: systolic murmur, diastolic murmur, rubs, gallop - GI/Abdominal GI/Abdominal exam: Present: soft, normal bowel sounds. Absent: distended, tenderness, guarding, rebound - Extremities Exam Extremities exam: Present: normal inspection, full ROM, tenderness (TTP to anterior and lateral ankle. negative anterior drawer sign. normal DP/PT pulses. normal distal sensation and cap refill. no TTP to foot or knee) - Back Exam Back exam: Present: normal inspection, full ROM, tenderness - Neurological Exam Neurological exam: Present: alert, oriented X3, normal gait - Psychiatric Psychiatric exam: Present: normal affect, normal mood - Skin Skin exam: Present: warm, dry, intact, normal color. Absent: rash ED Course Vital Signs 01/28/21 08:00 Temperature 97.9 F Pulse Rate 83 Respiratory 18 Rate Blood Pressure 148/99 O2 Sat by Pulse 97 Oximetry ED Medical Decision Making - Radiology Data Radiology results: image reviewed interpreted by me: No acute fractures, normal ankle mortise without widening, no acute findings. - Medical Decision Making X-ray is unremarkable. Patient was placed in Ehsan wrap by RN. This was applied appropriately and the neurovascular exam was intact post application. Patient be given anti-inflammatories, rest, ice, elevation and recommended outpatient follow-up with orthopedics if her pain is persistent. She was educated that x- rays not perfect and that her pains persist is very important that she follows up to ensure that there is not a subtle hairline fracture or stress fracture that could be missed on initial imaging. She verbalized understand these instructions and all of her questions were answered. - Differential Diagnosis Sprain, strain, fracture Critical care attestation.: If time is entered above; I have spent that time in minutes in the direct care of this critically ill patient, excluding procedure time. ED Disposition Clinical Impression: Left ankle sprain Qualifiers: Encounter type: initial encounter Involved ligament of ankle: anterior talo fibular ligament Qualified Code(s): S93.492A - Sprain of other ligament of left ankle, initial encounter Disposition: HOME / SELF CARE / HOMELESS Is pt being admited?: No Does the pt Need Aspirin: No Condition: Stable Instructions: Ankle Sprain Prescriptions: Naproxen 500 mg PO BID #20 tablet Referrals: PRIMARY CAREMD [Primary Care Provider] - 3-5 Days WANDER AGUILAR MD [Staff Physician] - 3-5 Days Forms: Work/School Release Form(ED) Time of Disposition: 08:32
--- NOTE | 2021-01-28 08:39 | XRay Report ---
ANKLE, LEFT, 3 VIEWS HISTORY: Pain, fall, inversion injury. COMPARISON: None. TECHNIQUE: 3 view(s) of the left ankle were obtained. FINDINGS: Bones: No fracture or dislocation. Joint spaces: Maintained. Soft tissues: No significant abnormality. Additional findings: Small plantar calcaneal spur. IMPRESSION: Left ankle without evidence of acute osseous injury. Signer Name: Billy Ibanez MD Signed: 01/28/2021 8:34 AM Workstation Name: [id number]
== END 2021-01-28 08:45 | disposition home or self-care (01) ==
LOC: ED 07:57
DX: S93.402A Sprain of unspecified ligament of left ankle, initial encounter (principal); I10 Essential (primary) hypertension; E11.8 Type 2 diabetes mellitus with unspecified complications; F17.200 Nicotine dependence, unspecified, uncomplicated; W18.39XA Other fall on same level, initial encounter; Y93.89 Activity, other specified; Y92.89 Other specified places as the place of occurrence of the external cause; Y99.8 Other external cause status
CPT/HCPCS: 99283

== ENCOUNTER 2021-03-17 13:42 | Emergency (ER) | payer MEDICAID ==
[2021-03-17 14:41] VITALS: BP 142/76
--- NOTE | 2021-03-17 14:47 | Emergency Department Report ---
ED Rash HPI - HPI Chief Complaint: Skin Rash Stated Complaint: SKIN PROBLEM Time Seen by Provider: 03/17/21 14:41 Duration: 1 Day Location: Abdomen (right abd pain) Rash Symptoms: Yes Blistering, No Itching, No Facial Swelling, No Tongue/Oral Swelling, No Breathing Difficulties, No Choking Sensation, No Wheezing/Dyspnea, No Peeling, No Fever, No Lightheaded, No Malaise, No Myalgias Severity: mild Other History: 30-year-old female with a past medical history of hypertension and diabetes presents to the ER today complaining of a blister that she noticed to her right abdominal area. She states that she noticed it yesterday. She does not recall any injury, insect bites or irritation to the skin. She reports that it is sore to touch. She denies any fever or chills. ED Review of Systems ROS: Stated complaint: SKIN PROBLEM Other details as noted in HPI Comment: All other systems reviewed and negative Skin: rash (Blister to right abdomen) ED Past Medical Hx - Past Medical History Hx Hypertension: Yes Hx Diabetes: Yes - Surgical History Additional Surgical History: tubaligation. hernai repair. left leg at age 9 - Social History Smoking Status: Current Every Day Smoker Substance Use Type: None - Medications Home Medications: Home Medications Medication Instructions Recorded Confirmed Last Taken Type Naproxen 500 mg PO Q12H PRN #12 tablet 06/14/20 09/05/20 Unknown Rx Famotidine [Pepcid] 20 mg PO BID #60 tablet 07/05/20 09/05/20 Unknown Rx amLODIPine 5 mg PO DAILY #30 tab 07/05/20 09/05/20 Unknown Rx Miconazole Nitrate [Miconazole 7] 45 gm VG QHS #7 cream.appl 09/05/20 Unknown Rx atenoloL [Tenormin] 25 mg PO DAILY #30 tab 09/05/20 Unknown Rx metFORMIN [Glucophage] 1,000 mg PO BID #120 tablet 09/05/20 Unknown Rx cephALEXin [Keflex] 500 mg PO Q8HR 5 Days cap 09/21/20 Unknown Rx Ibuprofen [Motrin] 800 mg PO Q8HR PRN #30 tablet 12/22/20 Unknown Rx cephALEXin [Keflex] 500 mg PO Q8HR #30 cap 12/22/20 Unknown Rx Naproxen 500 mg PO BID #20 tablet 01/28/21 Unknown Rx Bacitracin 1 applic TP BID #1 tube 03/17/21 Unknown Rx Rash Exam - Exam General: Vital signs noted. No distress. Alert and acting appropriately. HEENT: No Periorbital Edema, No Conjuctival Injection, No Chemosis, No Perioral Edema, No Tongue Edema, No Uvular Edema, No Compromised Airway, No Drooling Lungs: No Good Air Exchange, No Wheezes, No Ronchi, No Stridor, No Cough, No Labored Respirations, No Retractions, No Use of Accessory Muscles, No Other Abnormal Lung Sounds Heart: Yes Regular, No Murmur Skin: Yes Bulla(e) (Single, medium size bullae/blister about the size of the nickel, as well as small blisters around it noted to the right abdominal area with slight surrounding erythema. No pus, no streaking redness, no induration or fluctuance noted. This is located on the right abdominal wall.), Yes Tenderness, Yes Erythema, No Urticarial Rash, No Maculopapular Rash, No Morbilliform rash, No Excoriations, No Weeping, No Edema, No Encrustations Other: Positive: Abdomen Normal, Neurologic Normal, Musculoskeletal Normal ED Course Vital Signs 03/17/21 14:37 Temperature 98.9 F Pulse Rate 81 Respiratory 18 Rate Blood Pressure 142/76 [Left] Critical care attestation.: If time is entered above; I have spent that time in minutes in the direct care of this critically ill patient, excluding procedure time. ED Disposition Clinical Impression: Blistered skin Disposition: 01 HOME / SELF CARE / HOMELESS Is pt being admited?: No Does the pt Need Aspirin: No Condition: Stable Instructions: Blisters, Adult Additional Instructions: Keep the area clean daily with soap and water. Do not use peroxide or alcohol. Apply the bacitracin over the wound after each cleaning. Do not rupture the blister or manipulate the blister. Follow-up with your PCP. Return to the ER area seems to be getting worse. Prescriptions: Bacitracin 1 applic TP BID #1 tube Referrals: PRIMARY CARE, [Primary Care Provider] - 3-5 Days Time of Disposition: 14:49
== END 2021-03-17 19:14 | disposition home or self-care (01) ==
LOC: ED 13:42
DX: S30.821A Blister (nonthermal) of abdominal wall, initial encounter (principal); I10 Essential (primary) hypertension; E11.9 Type 2 diabetes mellitus without complications; F17.200 Nicotine dependence, unspecified, uncomplicated; Z98.51 Tubal ligation status; X58.XXXA Exposure to other specified factors, initial encounter; Y93.89 Activity, other specified; Y92.89 Other specified places as the place of occurrence of the external cause; Y99.8 Other external cause status
CPT/HCPCS: 99282

== ENCOUNTER 2021-04-16 08:13 | Emergency (ER) | payer MEDICAID ==
[2021-04-16 09:18] VITALS: BP 171/113
--- NOTE | 2021-04-16 11:46 | Emergency Department Report ---
- General Chief Complaint: Upper Respiratory Infection Stated Complaint: covid symptoms PUI?: Yes Time Seen by Provider: 04/16/21 10:55 Source: patient Mode of arrival: Ambulatory Limitations: No Limitations - History of Present Illness Initial Comments: 30-year-old -Swiss obese female with a past medical history of hypertension and diabetes presents to the ER today with complaints of her 2 to 3-day history of flu symptoms. Patient states that she has been having sore throat, bilateral ear pain, dry cough, nasal congestion, rhinorrhea and h eadache. She states that she has had fever, the highest measured temp was 101. She states that she has been taking [id number] medications but she read that she should not be taking it due to her diabetes. She denies any known ill contacts or recent travel. She does not smoke. She reports no chest pain, shortness of breath, wheezing, GI or symptoms. She states that she did get the Moderna Covid vaccine back in November 2020. MD Complaint: fever, cough, sore throat, rhinorrhea, nasal congestion, sinus pain, other (ear pain) -: days(s) (2-3) - Related Data Previous Rx's Medication Instructions Recorded Last Taken Type Famotidine [Pepcid] 20 mg PO BID #60 tablet 07/05/20 Unknown Rx amLODIPine 5 mg PO DAILY #30 tab 07/05/20 Unknown Rx atenoloL [Tenormin] 25 mg PO DAILY #30 tab 09/05/20 Unknown Rx metFORMIN [Glucophage] 1,000 mg PO BID #120 tablet 09/05/20 Unknown Rx Bacitracin 1 applic TP BID #1 tube 03/17/21 Unknown Rx Fexofenadine HCl [Mary Jane Allergy] 180 mg PO DAILY #30 04/16/21 Unknown Rx Fluticasone [Flonase] 2 spray NS QDAY #1 bottle 04/16/21 Unknown Rx Ibuprofen [Motrin 800 MG tab] 800 mg PO Q8HR PRN #30 tablet 04/16/21 Unknown Rx guaiFENesin/CODEINE [Robitussin AC] 5 ml PO Q4HR PRN #100 04/16/21 Unknown Rx Allergies Allergy/AdvReac Type Severity Reaction Status Date / Time No Known Allergies Allergy Verified 01/28/21 08:02 ED Review of Systems ROS: Stated complaint: covid symptoms Other details as noted in HPI Comment: All other systems reviewed and negative Constitutional: fever ENT: ear pain, throat pain, congestion, other (rhinorrhea) Respiratory: cough. denies: shortness of breath, SOB with exertion, SOB at rest, wheezing Cardiovascular: denies: chest pain, palpitations Gastrointestinal: denies: abdominal pain, nausea, diarrhea Genitourinary: denies: urgency, dysuria, frequency, hematuria, discharge, abnormal menses, dyspareunia Musculoskeletal: myalgia Skin: denies: rash, lesions Neurological: headache. denies: numbness, paresthesias, confusion, abnormal gait, vertigo Psychiatric: denies: anxiety, depression, auditory hallucinations, visual hallucinations, homicidal thoughts, suicidal thoughts Hematological/Lymphatic: denies: easy bleeding, easy bruising, swollen glands ED Past Medical Hx - Past Medical History Hx Hypertension: Yes Hx Diabetes: Yes - Surgical History Additional Surgical History: tubaligation. hernai repair. left leg at age 9 - Social History Smoking Status: Current Every Day Smoker Substance Use Type: None - Medications Home Medications: Home Medications Medication Instructions Recorded Confirmed Last Taken Type Famotidine [Pepcid] 20 mg PO BID #60 tablet 07/05/20 09/05/20 Unknown Rx amLODIPine 5 mg PO DAILY #30 tab 07/05/20 09/05/20 Unknown Rx atenoloL [Tenormin] 25 mg PO DAILY #30 tab 09/05/20 Unknown Rx metFORMIN [Glucophage] 1,000 mg PO BID #120 tablet 09/05/20 Unknown Rx Bacitracin 1 applic TP BID #1 tube 03/17/21 Unknown Rx Fexofenadine HCl [Mary Jane Allergy] 180 mg PO DAILY #30 04/16/21 Unknown Rx Fluticasone [Flonase] 2 spray NS QDAY #1 bottle 04/16/21 Unknown Rx Ibuprofen [Motrin 800 MG tab] 800 mg PO Q8HR PRN #30 tablet 04/16/21 Unknown Rx guaiFENesin/CODEINE [Robitussin AC] 5 ml PO Q4HR PRN #100 04/16/21 Unknown Rx ED Physical Exam - General Limitations: No Limitations General appearance: alert, in no apparent distress, obese, other (mildly ill appearing but not toxic ) - Head Head exam: Present: atraumatic, normocephalic, normal inspection - Eye Eye exam: Present: EOMI Pupils: Present: normal accommodation - Expanded ENT Exam Expanded TM/Canal exam: Effusion: Right TM, Left TM Mouth exam: Present: normal external inspection Throat exam: Positive: tonsillar erythema. Negative: tonsillomegaly, tonsillar exudate, R peritonsillar mass, L peritonsillar mass - Neck Neck exam: Present: normal inspection, full ROM. Absent: meningismus, lymphadenopathy - Respiratory Respiratory exam: Present: normal lung sounds bilaterally. Absent: respiratory distress, wheezes, rales, rhonchi - Cardiovascular Cardiovascular Exam: Present: regular rate, normal rhythm, normal heart sounds - GI/Abdominal GI/Abdominal exam: Present: soft. Absent: distended, tenderness, guarding - Neurological Exam Neurological exam: Present: alert, oriented X3, CN II-XII intact, normal gait - Psychiatric Psychiatric exam: Present: normal affect, normal mood - Skin Skin exam: Present: intact ED Course Vital Signs 04/16/21 09:16 Temperature 98.7 F Pulse Rate 100 H Respiratory 16 Rate Blood Pressure 171/113 O2 Sat by Pulse 98 Oximetry ED Medical Decision Making - Medical Decision Making 30-year-old -Swiss obese female with a past medical history of hypertension and diabetes presents to the ER today with complaints of her 2 to 3-day history of flu symptoms. Patient states that she has been having sore throat, bilateral ear pain, dry cough, nasal congestion, rhinorrhea and headache. She states that she has had fever, the highest measured temp was 101. She states that she has been taking dksy-lea-qghzxrg medications but she read that she should not be taking it due to her diabetes. She denies any known ill contacts or recent travel. She does not smoke. She reports no chest pain, shortness of breath, wheezing, GI or symptoms. She states that she did get the Moderna Covid vaccine back in November 2020. 1209: Patient mildly ill-appearing but overall she is not toxic, she denies any significant pain or respiratory distress. She appears well-hydrated. Chest is clear to auscultation. She has a soft nontender abdomen. No meningeal signs on exam. She is hemodynamically stable. Her vital signs reviewed, she is not hypoxic, tachycardic, or febrile. Her blood pressure was noted to be elevated during stay, but she admits that she did not take the medications this morning and she is also been taking kkgq-pde-ddgalva medication which can contribute to elevation of her blood pressure. Currently she has no symptoms related to hypertension. She reports no chest pain, shortness of breath, focal weakness, speech changes vision changes or paresthesias. She is neurologically intact and her gait is normal. Patient symptoms I suspect is likely related to a viral illness. Discussed suspected diagnosis with patient. Informed her that COVID- 19 is likely a possibility and recommend that she gets an outpatient COVID-19 test today. In the meantime she will be treated for her symptoms, lots of rest and fluids. Patient expressed understanding for instructions and agree with plan. She understands to return if her symptoms worsens. Patient was stable at time of discharge. Critical care attestation.: If time is entered above; I have spent that time in minutes in the direct care o f this critically ill patient, excluding procedure time. ED Disposition Clinical Impression: Viral URI with cough, Suspected COVID-19 virus infection Disposition: HOME / SELF CARE / HOMELESS Is pt being admited?: No Does the pt Need Aspirin: No Condition: Stable Instructions: Cough, Adult, [id number], Upper Respiratory Infection, Adult, [id number] Additional Instructions: Take the Robitussin as prescribed to help with any coughing. Use the Flonase and take the Mary Jane as prescribed to help with rhinorrhea and nasal congestion. Take the ibuprofen as prescribed to help with any fever and/or pain. You can also alternate with asrg-[id number] plain Tylenol. Drink lots of fluids. Your symptoms are very likely related to a viral illness, this could be the flu but also could be Covid or nonspecific virus. I do recommend that she get a COVID- 19 test once you leave the ER today. If you are positive you will need to quarantine at home for 5 days. Viral illnesses typically has to run its course, and treatment is typically geared towards just treating your symptoms. Drink lots of fluids. Take a multivitamin containing vitamin C, zinc and vitamin D to help boost your immune system. If at any rate your symptoms worsens return immediately to the ER. Prescriptions: Fexofenadine HCl [Mary Jane Allergy] 180 mg PO DAILY #30 Fluticasone [Flonase] 2 spray NS QDAY #1 bottle Ibuprofen [Motrin 800 MG tab] 800 mg PO Q8HR PRN #30 tablet PRN Reason: Pain , Severe (7-10) guaiFENesin/CODEINE [Robitussin AC] 5 ml PO Q4HR PRN #100 PRN Reason: Cough Referrals: PRIMARY CARE, [Primary Care Provider] - 3-5 Days Forms: Work/School Release Form(ED) Time of Disposition: 11:58
== END 2021-04-16 12:20 | disposition home or self-care (01) ==
LOC: ED 08:13
DX: J06.9 Acute upper respiratory infection, unspecified (principal); R05.9 Cough, unspecified; Z20.822 Contact with and (suspected) exposure to COVID-19
CPT/HCPCS: 99282

== ENCOUNTER 2021-07-06 17:27 | Emergency (ER) | payer MEDICAID ==
[2021-07-06] MEDS ORDERED: HYDROcodone/ACETAMINOPHEN 5-325 MG TAB PO ONE (17:39)
--- NOTE | 2021-07-06 18:09 | Emergency Department Report ---
ED Lower Extremity HPI - General Chief Complaint: Extremity Injury, Lower Stated Complaint: RIGHT ANKLE INJURY Time Seen by Provider: 07/06/21 17:38 Source: patient, EMS Mode of arrival: Stretcher Limitations: Physical Limitation - History of Present Illness Initial Comments: right ankle injury after groind level fall today no head injury no loc MD Complaint: ankle injury -: Sudden, hour(s) Injury: Ankle: Right Type of Injury: inversion Place: home Severity: moderate Severity scale (0 -10): 4 Improves With: immobilization Context: fall - Related Data Previous Rx's Medication Instructions Recorded Last Taken Type Famotidine [Pepcid] 20 mg PO BID #60 tablet 07/05/20 Unknown Rx amLODIPine 5 mg PO DAILY #30 tab 07/05/20 Unknown Rx atenoloL [Tenormin] 25 mg PO DAILY #30 tab 09/05/20 Unknown Rx metFORMIN [Glucophage] 1,000 mg PO BID #120 tablet 09/05/20 Unknown Rx Bacitracin 1 applic TP BID #1 tube 03/17/21 Unknown Rx Fexofenadine HCl [Mary Jane Allergy] 180 mg PO DAILY #30 04/16/21 Unknown Rx Fluticasone [Flonase] 2 spray NS QDAY #1 bottle 04/16/21 Unknown Rx Ibuprofen [Motrin 800 MG tab] 800 mg PO Q8HR PRN #30 tablet 04/16/21 Unknown Rx guaiFENesin/CODEINE [Robitussin AC] 5 ml PO Q4HR PRN #100 04/16/21 Unknown Rx Ketorolac [Toradol] 10 mg PO Q6H PRN #14 07/06/21 Unknown Rx Allergies Allergy/AdvReac Type Severity Reaction Status Date / Time No Known Allergies Allergy Verified 01/28/21 08:02 ED Review of Systems ROS: Stated complaint: RIGHT ANKLE INJURY Other details as noted in HPI Constitutional: denies: chills, fever Eyes: denies: eye pain, eye discharge, vision change ENT: denies: ear pain, throat pain Respiratory: denies: cough, shortness of breath, wheezing Cardiovascular: denies: chest pain, palpitations Endocrine: no symptoms reported Gastrointestinal: denies: abdominal pain, nausea, diarrhea Genitourinary: denies: urgency, dysuria, discharge Musculoskeletal: denies: back pain, joint swelling, arthralgia Skin: denies: rash, lesions Neurological: denies: headache, weakness, paresthesias Psychiatric: denies: anxiety, depression Hematological/Lymphatic: denies: easy bleeding, easy bruising ED Past Medical Hx - Past Medical History Hx Hypertension: Yes Hx Diabetes: Yes - Surgical History Additional Surgical History: tubaligation. hernai repair. left leg at age 9 - Social History Smoking Status: Current Every Day Smoker Substance Use Type: None - Medications Home Medications: Home Medications Medication Instructions Recorded Confirmed Last Taken Type Famotidine [Pepcid] 20 mg PO BID #60 tablet 07/05/20 09/05/20 Unknown Rx amLODIPine 5 mg PO DAILY #30 tab 07/05/20 09/05/20 Unknown Rx atenoloL [Tenormin] 25 mg PO DAILY #30 tab 09/05/20 Unknown Rx metFORMIN [Glucophage] 1,000 mg PO BID #120 tablet 09/05/20 Unknown Rx Bacitracin 1 applic TP BID #1 tube 03/17/21 Unknown Rx Fexofenadine HCl [Mary Jane Allergy] 180 mg PO DAILY #30 04/16/21 Unknown Rx Fluticasone [Flonase] 2 spray NS QDAY #1 bottle 04/16/21 Unknown Rx Ibuprofen [Motrin 800 MG tab] 800 mg PO Q8HR PRN #30 tablet 04/16/21 Unknown Rx guaiFENesin/CODEINE [Robitussin AC] 5 ml PO Q4HR PRN #100 04/16/21 Unknown Rx Ketorolac [Toradol] 10 mg PO Q6H PRN #14 07/06/21 Unknown Rx ED Physical Exam - General Limitations: Physical Limitation General appearance: alert, in no apparent distress - Head Head exam: Present: atraumatic, normocephalic - Eye Eye exam: Present: normal appearance - ENT ENT exam: Present: mucous membranes moist - Neck Neck exam: Present: normal inspection - Respiratory Respiratory exam: Present: normal lung sounds bilaterally. Absent: respiratory distress - Cardiovascular Cardiovascular Exam: Present: regular rate, normal rhythm. Absent: systolic murmur, diastolic murmur, rubs, gallop - GI/Abdominal GI/Abdominal exam: Present: soft, normal bowel sounds - Extremities Exam Extremities exam: Present: normal inspection - Expanded Lower Extremity Exam Right Ankle exam: Present: tenderness, swelling - Back Exam Back exam: Present: normal inspection - Neurological Exam Neurological exam: Present: alert, oriented X3 - Psychiatric Psychiatric exam: Present: normal affect, normal mood - Skin Skin exam: Present: warm, dry, intact, normal color. Absent: rash ED Course Vital Signs 07/06/21 17:32 Temperature 98.2 F Pulse Rate 87 Respiratory 20 Rate Blood Pressure 170/116 [Left] O2 Sat by Pulse 98 Oximetry Critical care attestation.: If time is entered above; I have spent that time in minutes in the direct care of this critically ill patient, excluding procedure time. ED Disposition Clinical Impression: Right ankle sprain Disposition: HOME / SELF CARE / HOMELESS Is pt being admited?: No Does the pt Need Aspirin: No Condition: Stable Instructions: Ankle Sprain, [id number]
--- NOTE | 2021-07-06 18:38 | XRay Report ---
RIGHT ANKLE 3 VIEWS 1753 INDICATION: fall COMPARISON: None available. FINDINGS: Diffuse soft tissue swelling, most prominent laterally. No fractures or dislocations are se en. Inferior calcaneal spurring is noted. Thickened cortex along the inferior aspect of the mid calcaneus is an unusual appearance. Thickened focal cortex without other findings can be seen with osteoid ost eoma. If patient has a history of chronic pain in this area, bone scan may be useful. Signer Name: Adria Smith MD Signed: 07/06/2021 6:34 PM Workstation Name: [id number]
[2021-07-06 18:55] VITALS: BP 152/98
== END 2021-07-06 18:38 | disposition home or self-care (01) ==
LOC: ED 17:27
DX: S93.401A Sprain of unspecified ligament of right ankle, initial encounter (principal); I10 Essential (primary) hypertension; E11.8 Type 2 diabetes mellitus with unspecified complications; F17.200 Nicotine dependence, unspecified, uncomplicated; X58.XXXA Exposure to other specified factors, initial encounter; Y93.89 Activity, other specified; Y92.89 Other specified places as the place of occurrence of the external cause; Y99.8 Other external cause status
CPT/HCPCS: 99284

== ENCOUNTER 2021-07-19 15:54 | Emergency (ER) | payer MEDICAID ==
[2021-07-19 16:09] VITALS: BP 156/111
--- NOTE | 2021-07-19 16:36 | Emergency Department Report ---
ED Lower Extremity HPI - General Chief Complaint: Extremity Injury, Lower Stated Complaint: RT FOOT SWELLING Time Seen by Provider: 07/19/21 16:16 Source: patient Mode of arrival: Ambulatory Limitations: Physical Limitation - History of Present Illness Initial Comments: 30-year-old female with a known history of hypertension to emergency emergency department complaining of right ankle pain was recently diagnosed couple weeks ago here in the emergency department. X-rays did show no evidence of any fracture she was placed in Ehsan wrap. She is not yet follow-up with orthopedic as previously recommended and subsequently reports continued pain to the foot and swelling since emergency department seeking reevaluation of the foot and ankles. She reports no reinjury to her knowledge. No numbness, no tingling, Complaint: ankle injury -: Gradual Injury: Ankle: Right, Foot: Right Type of Injury: unknown Place: home Worsens With: weight bearing, movement, palpation - Related Data Previous Rx's Medication Instructions Recorded Last Taken Type Famotidine [Pepcid] 20 mg PO BID #60 tablet 07/05/20 Unknown Rx amLODIPine 5 mg PO DAILY #30 tab 07/05/20 Unknown Rx atenoloL [Tenormin] 25 mg PO DAILY #30 tab 09/05/20 Unknown Rx metFORMIN [Glucophage] 1,000 mg PO BID #120 tablet 09/05/20 Unknown Rx Bacitracin 1 applic TP BID #1 tube 03/17/21 Unknown Rx Fexofenadine HCl [Mary Jane Allergy] 180 mg PO DAILY #30 04/16/21 Unknown Rx Fluticasone [Flonase] 2 spray NS QDAY #1 bottle 04/16/21 Unknown Rx Ibuprofen [Motrin 800 MG tab] 800 mg PO Q8HR PRN #30 tablet 04/16/21 Unknown Rx guaiFENesin/CODEINE [Robitussin AC] 5 ml PO Q4HR PRN #100 04/16/21 Unknown Rx Ketorolac [Toradol] 10 mg PO Q6H PRN #14 07/06/21 Unknown Rx Allergies Allergy/AdvReac Type Severity Reaction Status Date / Time No Known Allergies Allergy Verified 01/28/21 08:02 ED Review of Systems ROS: Stated complaint: RT FOOT SWELLING Other details as noted in HPI Comment: All other systems reviewed and negative ED Past Medical Hx - Past Medical History Previous Medical History?: Yes Hx Hypertension: Yes Hx Diabetes: Yes Additional medical history: Right foot/ankle pain - Surgical History Past Surgical History?: Yes Additional Surgical History: tubaligation. hernai repair. left leg at age 9 - Social History Smoking Status: Current Every Day Smoker Substance Use Type: None - Medications Home Medications: Home Medications Medication Instructions Recorded Confirmed Last Taken Type Famotidine [Pepcid] 20 mg PO BID #60 tablet 07/05/20 09/05/20 Unknown Rx amLODIPine 5 mg PO DAILY #30 tab 07/05/20 09/05/20 Unknown Rx atenoloL [Tenormin] 25 mg PO DAILY #30 tab 09/05/20 Unknown Rx metFORMIN [Glucophage] 1,000 mg PO BID #120 tablet 09/05/20 Unknown Rx Bacitracin 1 applic TP BID #1 tube 03/17/21 Unknown Rx Fexofenadine HCl [Mary Jane Allergy] 180 mg PO DAILY #30 04/16/21 Unknown Rx Fluticasone [Flonase] 2 spray NS QDAY #1 bottle 04/16/21 Unknown Rx Ibuprofen [Motrin 800 MG tab] 800 mg PO Q8HR PRN #30 tablet 04/16/21 Unknown Rx guaiFENesin/CODEINE [Robitussin AC] 5 ml PO Q4HR PRN #100 04/16/21 Unknown Rx Ketorolac [Toradol] 10 mg PO Q6H PRN #14 07/06/21 Unknown Rx ED Physical Exam - General Limitations: Physical Limitation General appearance: alert, in no apparent distress - Head Head exam: Present: atraumatic, normocephalic - Eye Eye exam: Present: normal appearance - ENT ENT exam: Present: mucous membranes moist - Neck Neck exam: Present: normal inspection - Respiratory Respiratory exam: Present: normal lung sounds bilaterally. Absent: respiratory distress - Cardiovascular Cardiovascular Exam: Present: regular rate, normal rhythm. Absent: systolic murmur, diastolic murmur, rubs, gallop - GI/Abdominal GI/Abdominal exam: Present: soft, normal bowel sounds - Extremities Exam Extremities exam: Present: normal inspection, tenderness (Tenderness to the lateral malleoli region with some swelling tenderness about 3 inches above the lateral malleoli region. Joint is stable drawer test is negative. Pulses 2+ capillary refills are brisk.) - Back Exam Back exam: Present: normal inspection - Neurological Exam Neurological exam: Present: alert, oriented X3 - Psychiatric Psychiatric exam: Present: normal affect, normal mood - Skin Skin exam: Present: warm, dry, intact, normal color. Absent: rash ED Course Vital Signs 07/19/21 16:08 Temperature 98.4 F Pulse Rate 109 H Respiratory 20 Rate Blood Pressure 156/111 [Right] O2 Sat by Pulse 98 Oximetry ED Lower Extremity MDM - Medical Decision Making 30-year-old female status post appears to be very treated for ankle sprain weeks ago presents emergency department for evaluation she is unsure why her injury is noted here. Is been stressed to her the importance of follow-up with orthopedic for definitive treatment of this issue as well as utilizing the assistive splinting devices for comfort and healing process. We did discuss the need for icing inflammatories and keeping the leg elevated. Ehsan wrap was removed she was placed in the posterior splint normal emergency department visit here today. No neurovascular compromise examination Critical care attestation.: If time is entered above; I have spent that time in minutes in the direct care of this critically ill patient, excluding procedure time. ED Disposition Clinical Impression: Right ankle sprain, High ankle sprain of right lower extremity Disposition: HOME / SELF CARE / HOMELESS Is pt being admited?: No Does the pt Need Aspirin: No Condition: Stable Instructions: How to Use a Stirrup Ankle Brace, [id number], Ankle Sprain, Ankle Sprain, Phase II Rehab-SportsMed, How to Use Cold Therapy, How to Use a Stirrup Ankle Brace Additional Instructions: You have been seen evaluate emergency department to evaluate your ankle sprain which was this diagnosed in early 2 weeks ago. It is imperative that you follow-up with the orthopedic doctor as recommended on the previous visit until that time please refrain from utilizing your right foot and ankle until cleared by the orthopedic with crutches and the stirrup splint was applied. Referrals: [facility] [Provider Group] - 3-5 Days
== END 2021-07-19 17:44 | disposition home or self-care (01) ==
LOC: ED 15:54
DX: S93.491A Sprain of other ligament of right ankle, initial encounter (principal); I10 Essential (primary) hypertension; E11.9 Type 2 diabetes mellitus without complications; F17.200 Nicotine dependence, unspecified, uncomplicated; Z98.51 Tubal ligation status; X58.XXXA Exposure to other specified factors, initial encounter; Y93.89 Activity, other specified; Y92.89 Other specified places as the place of occurrence of the external cause; Y99.8 Other external cause status
CPT/HCPCS: 99282

== ENCOUNTER 2021-08-26 09:09 | Emergency (ER) | payer MEDICAID ==
--- NOTE | 2021-08-26 10:48 | Emergency Department Report ---
ED Female HPI - General Chief complaint: Nausea/Vomiting/Diarrhea Stated complaint: HEADACHE/STOMACH ACHE Time Seen by Provider: 08/26/21 10:48 Source: patient Mode of arrival: Ambulatory Limitations: No Limitations - History of Present Illness Initial comments: Patient is a 30-year-old female that comes to the emergency room thinking that she is . She has had irregular periods over the last month. She denies dysuria. Patient denies back pain. She denies fever or chills. She denies frequency. The only thing she does endorse is some nausea. This is what makes her think that she is . She did not take a home test because she could not afford it. Patient is ambulatory, nontoxic [id number]. -: Gradual, days(s) Consistency: intermittent Improves with: none Worsens with: none Are you Now?: No Associated Symptoms: denies other symptoms, nausea/vomiting. denies: vaginal discharge, vaginal bleeding, abdominal pain, fever/chills, headaches, loss of appetite, dysuria, hematuria, rash, seizure, shortness of breath, syncope, weakness - Related Data Sexually active: Yes Previous Rx's Medication Instructions Recorded Last Taken Type amLODIPine 5 mg PO DAILY #30 tab 07/05/20 Unknown Rx atenoloL [Tenormin] 25 mg PO DAILY #30 tab 09/05/20 Unknown Rx metFORMIN [Glucophage] 1,000 mg PO BID #120 tablet 09/05/20 Unknown Rx Sulfamethoxazole/Trimethoprim 1 each PO BID #10 tablet 08/26/21 Unknown Rx [Bactrim DS TAB] Allergies Allergy/AdvReac Type Severity Reaction Status Date / Time No Known Allergies Allergy Verified 01/28/21 08:02 ED Review of Systems ROS: Stated complaint: HEADACHE/STOMACH ACHE Other details as noted in HPI Comment: All other systems reviewed and negative ED Past Medical Hx - Past Medical History Previous Medical History?: Yes Hx Hypertension: Yes Hx Diabetes: Yes Additional medical history: Right foot/ankle pain - Surgical History Past Surgical History?: Yes Additional Surgical History: tubaligation. hernai repair. left leg at age 9 - Family History Family history: no significant - Social History Smoking Status: Current Every Day Smoker Substance Use Type: None - Medications Home Medications: Home Medications Medication Instructions Recorded Confirmed Last Taken Type amLODIPine 5 mg PO DAILY #30 tab 07/05/20 09/05/20 Unknown Rx atenoloL [Tenormin] 25 mg PO DAILY #30 tab 09/05/20 Unknown Rx metFORMIN [Glucophage] 1,000 mg PO BID #120 tablet 09/05/20 Unknown Rx Sulfamethoxazole/Trimethoprim 1 each PO BID #10 tablet 08/26/21 Unknown Rx [Bactrim DS TAB] ED Physical Exam - General Limitations: No Limitations General appearance: alert, in no apparent distress - Head Head exam: Present: atraumatic, normocephalic - Eye Eye exam: Present: normal appearance - ENT ENT exam: Present: mucous membranes moist - Neck Neck exam: Present: normal inspection - Respiratory Respiratory exam: Present: normal lung sounds bilaterally. Absent: respiratory distress - Cardiovascular Cardiovascular Exam: Present: regular rate, normal rhythm. Absent: systolic murmur, diastolic murmur, rubs, gallop - GI/Abdominal GI/Abdominal exam: Present: soft, normal bowel sounds - Extremities Exam Extremities exam: Present: normal inspection - Back Exam Back exam: Present: normal inspection - Neurological Exam Neurological exam: Present: alert, oriented X3 - Psychiatric Psychiatric exam: Present: normal affect, normal mood - Skin Skin exam: Present: warm, dry, intact, normal color. Absent: rash ED Course Vital Signs 08/26/21 10:54 Temperature 98.5 F Pulse Rate 100 H Respiratory 18 Rate Blood Pressure 186/99 [Right] O2 Sat by Pulse 99 Oximetry ED Medical Decision Making - Medical Decision Making Vital Signs 08/26/21 10:54 Temperature 98.5 F Pulse Rate 100 H Respiratory 18 Rate Blood Pressure 186/99 [Right] O2 Sat by Pulse 99 Oximetry negative. UA noted. Patient being discharged home on Bactrim. Blood sugar was 110 just prior to coming to the ER. Patient is taking p.o. She is not hypotensive or tachycardic. She is ambulatory and in no acute distress. She has no CVA tenderness. Abdomen exam is normal Patient verbalizes understanding of discharge plan of care including diet, activity, medications and follow-up. Patient understands she is higher risk for problems given her diabetes. She has been instructed to maintain tight glucose control and to follow her diabetic diet. She understands that illness can make her blood sugars higher. Patient understands she needs to follow-up with primary care. Referral has been given. - Differential Diagnosis Rule out , UTI Critical care attestation.: If time is entered above; I have spent that time in minutes in the direct care of this critically ill patient, excluding procedure time. ED Disposition Clinical Impression: History of diabetes mellitus, History of hypertension UTI (urinary tract infection) Qualifiers: Urinary tract infection type: acute cystitis Hematuria presence: without hematuria Qualified Code(s): N30.00 - Acute cystitis without hematuria Disposition: HOME / SELF CARE / HOMELESS Is pt being admited?: No Does the pt Need Aspirin: No Condition: Stable Instructions: Urinary Tract Infection, Adult Additional Instructions: Continue your home medications. Stay well-hydrated with water. Maintain control of your blood glucose. Follow your diabetic diet Motrin or Tylenol for pain Antibiotic as ordered today until gone. After you finish your antibiotic follow-up with PCP to make sure this is gone away Referrals: SAMMIE PONCE MD [Primary Care Provider] - 3-5 Days Time of Disposition: 12:27
[2021-08-26 10:56] VITALS: BP 186/99
[2021-08-26 11:57] LABS: HCG Qualitative,Urine Negative (Negative)
[2021-08-26 12:02] LABS: Bacteria,Urine 1+ /HPF (Negative); Bilirubin,Urine NEG (Negative); Blood,Urine SM (Negative); Color,Urine Yellow (Yellow); Mucus,Urine 1+ /HPF; Urobilinogen,Urine < 2.0 mg/dL (<2.0)
== END 2021-08-26 13:26 | disposition home or self-care (01) ==
LOC: ED 09:09
DX: N39.0 Urinary tract infection, site not specified (principal); I10 Essential (primary) hypertension; E11.9 Type 2 diabetes mellitus without complications; Z98.890 Other specified postprocedural states; F17.290 Nicotine dependence, other tobacco product, uncomplicated
CPT/HCPCS: 81001; 81025; 87086; 99283

== ENCOUNTER 2021-09-09 07:08 | Emergency (ER) | payer MEDICAID ==
[2021-09-09] MEDS ORDERED: ONDANSETRON 4 MG/2 ML INJ IV ONE (08:49)
[2021-09-09] MEDS ORDERED: amLODIPine 5 MG TAB PO ONE (09:02)
--- NOTE | 2021-09-09 09:02 | Emergency Department Report ---
HPI - General Chief Complaint: Hyperglycemia PUI?: No Time Seen by Provider: 09/09/21 07:58 - HPI HPI: 30-year-old morbidly obese female with history of uncontrolled diabetes, hypertension (noncompliant with medication per patient's report), presents for evaluation of elevated blood sugar. Patient states "I felt like my sugar was high and when I get feelings like I am just not feeling well and notes my sugar. I checked it this morning and it was 314. I drink 2 bottles of water." she c/o mild nausea. Pt also states "can you check a test? I dont know if I'm and that's causing me to feel bad." LMP was "sometime in june" per her verbal report . No abdominal pain vomiting fevers or chills. No headaches. No presyncope or syncope. No chest pain shortness of breath difficulty breathing or palpitations. Patient states she moved to [place] 2 years ago but has not seen a primary care doctor "because no one accepts my insurance." Pain 0 out of 10. ED Past Medical Hx - Past Medical History Hx Hypertension: Yes Hx Diabetes: Yes Additional medical history: Right foot/ankle pain - Surgical History Past Surgical History?: No Additional Surgical History: tubaligation. hernai repair. left leg at age 9 - Family History Family history: no significant - Social History Smoking Status: Never Smoker Substance Use Type: None - Medications Home Medications: Home Medications Medication Instructions Recorded Confirmed Last Taken Type amLODIPine 5 mg PO DAILY #30 tab 07/05/20 09/05/20 Unknown Rx atenoloL [Tenormin] 25 mg PO DAILY #30 tab 09/05/20 Unknown Rx metFORMIN [Glucophage] 1,000 mg PO BID #120 tablet 09/05/20 Unknown Rx Sulfamethoxazole/Trimethoprim 1 each PO BID #10 tablet 08/26/21 Unknown Rx [Bactrim DS TAB] ED Review of Systems ROS: Stated complaint: HIGH BLOOD SUGAR Other details as noted in HPI Comment: All other systems reviewed and negative Constitutional: no symptoms reported, see HPI. denies: chills, diaphoresis, fever, malaise Eyes: denies: eye pain, eye discharge, vision change ENT: denies: ear pain, throat pain, dental pain, hearing loss, epistaxis Respiratory: denies: no symptoms reported, see HPI, cough, orthopnea, shortness of breath, SOB with exertion, SOB at rest, stridor, wheezing Cardiovascular: denies: as per HPI, chest pain, palpitations, dyspnea on exertion, orthopnea, edema, syncope Endocrine: flushing, increased hunger, increased thirst, increased urine. denies: intolerance to cold, intolerance to heat, unexplained weight gain, unexplained weight loss Gastrointestinal: nausea. denies: as per HPI, abdominal pain, vomiting, diarrhea, constipation, hematemesis, melena Genitourinary: denies: urgency, dysuria, frequency, hematuria, discharge, abnormal menses, dyspareunia Skin: denies: as per HPI, rash, lesions, change in color, change in hair/nails, pruritus Neurological: as per HPI, weakness. denies: headache, numbness, paresthesias, confusion, abnormal gait, vertigo, other Psychiatric: denies: as per HPI, anxiety, depression, auditory hallucinations, visual hallucinations, homicidal thoughts, suicidal thoughts Hematological/Lymphatic: denies: as per HPI, easy bleeding, easy bruising, swollen glands Physical Exam - Physical Exam Vital Signs: Vital Signs 09/09/21 09/09/21 09/09/21 07:24 07:54 07:57 Temperature 98.4 F Pulse Rate 104 H 94 H Respiratory 16 20 16 Rate Blood Pressure 159/98 Blood Pressure 183/119 159/98 [Right] O2 Sat by Pulse 100 100 Oximetry 09/09/21 08:25 Temperature Pulse Rate 95 H Respiratory Rate Blood Pressure Blood Pressure [Right] O2 Sat by Pulse Oximetry General: Gen: pt is well appearing, no acute distress, speaking in full sentences, no drooling, no stridor, nontoxic appearing HEENT: Normocephalic atraumatic pupils equally round and reactive to light extraocular muscles intact sclera anicteric Neck: Full range of motion, no midline spinal tenderness palpation, no JVD, no carotid bruits, no nuchal rigidity CVS: S1-S2 regular rate and rhythm with no gallops rubs or murmurs, chest wall nontender Pulmonary: Clear to auscultation bilaterally, no wheezes rales or rhonchi Abdomen: Soft nondistended nontender no guarding or rebound tenderness, no palpable deformities or step-offs, normal active bowel sounds, no hepatos plenomegaly, no pulsatile masses : Deferred Extremities: No cyanosis no clubbing no edema, intact distal peripheral pulses, Integumentary: Skin normal, no petechia no purpura no abscess no lacerations no evidence of trauma no evidence of infection Neuro: Patient is awake alert and oriented to person place time situation, mentating well, cranial nerves II through XII intact, no focal neurodeficits, sensation grossly tact Psych: Calm cooperative, mood affect normal ED Course Vital Signs 09/09/21 09/09/21 09/09/21 07:24 07:54 07:57 Temperature 98.4 F Pulse Rate 104 H 94 H Respiratory 16 20 16 Rate Blood Pressure 159/98 Blood Pressure 183/119 159/98 [Right] O2 Sat by Pulse 100 100 Oximetry 09/09/21 08:25 Temperature Pulse Rate 95 H Respiratory Rate Blood Pressure Blood Pressure [Right] O2 Sat by Pulse Oximetry - Reevaluation(s) Reevaluation #1: 09/09/21 09:06 pt observed typing on her personal cellular telephone; she is comfortable and well appearing; nad ED Medical Decision Making - Lab Data Result diagrams: 09/09/21 09:21 09/09/21 09:21 - EKG Data -: EKG Interpreted by Me (yes) EKG shows normal: sinus rhythm Rate: normal - EKG Data When compared to previous EKG there are: no significant change, previous EKG unavailable - Medical Decision Making 30-year-old obese female with uncontrolled type 2 diabetes mellitus, hypertension, presents for evaluation of reports of fatigue and elevated blood sugars at home. Patient is also requesting to have test checked. Vital signs stable. Patient given her home dose of her regular blood pressure medication and her blood pressure improved accordingly. Serum labs reviewed. hCG negative. Patient has no evidence of endorgan damage. Her hyperglycemia is not accompanied with elevated anion gap metabolic acidosis. Anion gap is normal. She was given normal saline and regular insulin 4units IVP for management of hyperglycemia. Serial FSGs obtained. She was advised toto continue to drink plenty of water at home as well as to remain compliant with her medications for diabetes. Pt advised to contact local community referrals to establish care for outpatient follow-up care. She was given information at the time of discharge, all questi ons answered to me at the patient's bedside. Patient deemed stable for discharge to home. Prior to discharge she was given strict verbal and written return precautions. She verbalized understanding of current plan of care. Critical care attestation.: If time is entered above; I have spent that time in minutes in the direct care of this critically ill patient, excluding procedure time. ED Disposition Clinical Impression: Hyperglycemia due to type 2 diabetes mellitus Disposition: HOME / SELF CARE / HOMELESS Is pt being admited?: No Does the pt Need Aspirin: No Condition: Stable Instructions: Diabetes Mellitus Type 2 in Adults (ED), Type 2 Diabetes Mellitus, Self Care, Adult, Diabetes Mellitus and Exercise Additional Instructions: It is strongly recommended that you follow up with a primary care doctor within one week for reassessment and further management of your diabetes. This is very important. Information concerning a clinic and a provider (Dr. Zamora) have been provided to you with your discharge paperwork. Return if you develop worsening symptoms or if any other new worrisome symptoms develop. Referrals: [facility] [Provider Group] - 3-5 Days PRIMARY MD CHARLA [Primary Care Provider] - 3-5 Days DURGA ZAMORA MD [Staff Physician] - 3-5 Days
[2021-09-09] MEDS ORDERED: SODIUM CHLORIDE 0.9% 1000 ML 1,000 ML IV ONE (09:17)
[2021-09-09 09:38] LABS: Bilirubin,Urine NEG (Negative); Blood,Urine LG (Negative); Color,Urine Red (Yellow); Urobilinogen,Urine < 2.0 mg/dL (<2.0)
[2021-09-09 09:44] LABS: RBC,Urine < 1.0 /HPF (0.0-6.0); WBC,Urine < 1.0 /HPF (0.0-6.0)
[2021-09-09 10:02] LABS: HCG Qualitative,Urine Negative (Negative)
[2021-09-09 10:24] LABS: Eosinophils % (Auto) 0.3 % (0.0-4.3); Monocytes # (Auto) 0.3 K/mm3 (0.0-0.8); Monocytes % (Auto) 4.8 % (0.0-7.3)
[2021-09-09 10:28] LABS: Alanine Aminotransferase 79 units/L (7-56); Albumin 3.9 g/dL (3.9-5); BUN/Creatinine Ratio 12; Blood Urea Nitrogen 11 mg/dL (7-17); Calcium 9.1 mg/dL (8.4-10.2); Hematocrit 35.5 % (30.3-42.9); Hemoglobin 11.3 gm/dl (10.1-14.3); Hemolysis Index 4; Mean Corpuscular Volume 58 fl (79-97); Red Blood Count 6.14 M/mm3 (3.65-5.03)
[2021-09-09 10:29] LABS: Basophils % (Auto) 0.5 % (0.0-1.8); Lymphocytes # (Auto) 1.1 K/mm3 (1.2-5.4); Lymphocytes % (Auto) 17.2 % (13.4-35.0); Mean Corpuscular HGB Conc 32 % (30-34); Platelet Count 314 K/mm3 (140-440); Red Cell Distribution Width 15.6 % (13.2-15.2)
[2021-09-09 11:19] VITALS: BP 129/83
[2021-09-09] MEDS ORDERED: INSULIN REGULAR, HUMAN 100 UNITS/1 ML IV ONE (11:30)
--- NOTE | 2021-09-10 09:04 | Electrocardiograph Report ---
[facility] Test Date: 2021-09-09 Test Time: 08:17:20 Pat Name: JORDY VIDAL Department: Room: Gender: F Electrical Logger: VENESSA : 1990 Requested By: DWAYNE BENJAMIN Order Number: [id number] Reading MD: Kenrick Culver Measurements Intervals [place] Rate: 95 P: 58 [place]: 166 QRS: 23 QRSD: 88 T: -1 QT: 357 QTc: 449 Interpretive Statements Incomplete analysis due to missing data in precordial lead(s) Sinus rhythm nonspecific st-t No previous ECG available for comparison Electronically Signed On 09-10-2021 9:03:44 EDT by Kenrick Culver
== END 2021-09-09 12:29 | disposition home or self-care (01) ==
LOC: ED 07:08
DX: E11.65 Type 2 diabetes mellitus with hyperglycemia (principal); I10 Essential (primary) hypertension; E11.9 Type 2 diabetes mellitus without complications
CPT/HCPCS: 36415; 80053; 81001; 81025; 82962; 85025; 96361; 96374; 96375; 99284; J2405; J7030; Q9967; J1815

== ENCOUNTER 2021-09-11 14:02 | Emergency (ER) | payer MEDICAID ==
--- NOTE | 2021-09-11 22:25 | Emergency Department Report ---
HPI - General Chief Complaint: Headache Time Seen by Provider: 09/11/21 22:10 - HPI HPI: Room 21 The patient is a 30-year-old female present with a chief complaint of right lower extremity pain. The patient states last night she developed pain in the r ight lower extremity/calf described as cramping in nature. Patient now states she has continuous pain and gives it a score of 6/10. Patient denies any preceding trauma. Patient also complains of headache and lightheadedness since yesterday. The patient states she has been without her blood pressure medication for the past month. ED Past Medical Hx - Past Medical History Hx Hypertension: Yes Hx Diabetes: Yes Additional medical history: Right foot/ankle pain - Surgical History Additional Surgical History: Bilateral tubal ligation. hernai repair. left leg at age 9 - Family History Family history: no significant - Social History Smoking Status: Former Smoker (None for over 1 year) Substance Use Type: None (Denies illicit drug use) - Medications Home Medications: Home Medications Medication Instructions Recorded Confirmed Last Taken Type atenoloL [Tenormin] 25 mg PO DAILY #30 tab 09/05/20 Unknown Rx metFORMIN [Glucophage] 1,000 mg PO BID #120 tablet 09/05/20 Unknown Rx Sulfamethoxazole/Trimethoprim 1 each PO BID #10 tablet 08/26/21 Unknown Rx [Bactrim DS TAB] Liraglutide [Victoza 2-Humberto] 1.8 mg SQ QDAY #1 ml 09/09/21 Unknown Rx Ibuprofen [Motrin 800 MG tab] 800 mg PO Q8HR PRN #20 tablet 09/12/21 Unknown Rx amLODIPine 5 mg PO DAILY #30 tab 09/12/21 Unknown Rx ED Review of Systems ROS: Stated complaint: OFF BALANCE/DIZZY Other details as noted in HPI Constitutional: no symptoms reported Eyes: denies: eye pain ENT: denies: throat pain Respiratory: no symptoms reported Cardiovascular: denies: chest pain Endocrine: no symptoms reported Gastrointestinal: denies: abdominal pain Genitourinary: denies: dysuria Musculoskeletal: myalgia Neurological: headache Physical Exam - Physical Exam Vital Signs: Vital Signs 09/11/21 16:18 Temperature 98.5 F Pulse Rate 85 Respiratory 16 Rate Blood Pressure 153/104 O2 Sat by Pulse 99 Oximetry Physical Exam: GENERAL: The patient is well-developed well-nourished []. [] HEENT: Normocephalic. Atraumatic. Extraocular motions are intact with occasional strabismus noted during interview. Patient has moist mucous membranes. NECK: Supple. No meningitic signs are noted. Trachea midline CHEST/LUNGS: Clear to auscultation. There is no respiratory distress noted. HEART/CARDIOVASCULAR: Regular. There is no tachycardia. There is no gallop rub or murmur. ABDOMEN: Abdomen is soft, nontender. Patient has normal bowel sounds. There is no abdominal distention. SKIN: There is no rash. There is no edema. There is no diaphoresis. NEURO: The patient is awake, alert, and oriented. The patient is cooperative. The patient has no focal neurologic deficits. The patient has normal speech. Cranial nerves II through XII grossly intact. GCS 15 MUSCULOSKELETAL: There is no evidence of acute injury. ED Course Vital Signs 09/11/21 16:18 Temperature 98.5 F Pulse Rate 85 Respiratory 16 Rate Blood Pressure 153/104 O2 Sat by Pulse 99 Oximetry ED Medical Decision Making - Lab Data Result diagrams: 09/11/21 22:35 09/11/21 22:35 Laboratory Tests 09/11/21 09/11/21 09/11/21 22:35 22:35 22:35 WBC 8.3 RBC 6.93 H Hgb 12.2 Hct 40.2 MCV 58 L MCH 18 L MCHC 30 RDW 15.8 H Plt Count 390 Lymph % (Auto) 33.6 [place] % (Auto) 5.9 Eos % (Auto) 1.3 Baso % (Auto) 1.2 Lymph # (Auto) 2.8 [place] # (Auto) 0.5 Eos # (Auto) 0.1 Baso # (Auto) 0.1 Seg Neutrophils % 58.0 Seg Neutrophils # 4.8 VBG pH 7.324 Sodium 138 Potassium 4.0 Chloride 100.6 Carbon Dioxide 27 Anion Gap 14 BUN 10 Creatinine 0.8 Estimated GFR > 60 BUN/Creatinine Ratio 13 Glucose 139 H Calcium 9.8 - Radiology Data Radiology results: report reviewed (CT head, right lower extremity Doppler), image reviewed (CT head, right lower extremity Doppler) [facility] [address] [place] [address] Cat Scan Report Signed Patient: JORDY VIDAL MR#: [id number] : 1990 Acct:[id number] Age/Sex: 30 / F ADM Date: 09/11/21 Loc: ED Attending Dr: Ordering Physician: CLARICE TURCIOS MD Date of Service: 09/11/21 Procedure(s): CT head/brain wo con Accession Number(s): [id number] cc: CLARICE TURCIOS MD CT HEAD WITHOUT CONTRAST INDICATION / CLINICAL INFORMATION: Lightheadedness / Headache. TECHNIQUE: All CT scans at this location are performed using CT dose reduction for ALARA by means of automated exposure control. COMPARISON: None available. FINDINGS: BRAIN PARENCHYMA: No acute intracranial hemorrhage. No evidence of recent infarct. No mass effect or midline shift. VENTRICULAR SYSTEM/EXTRA-AXIAL SPACES: Ventricles are normal for age. No extra-axial fluid collection. ORBITS: Normal as visualized. SKELETAL SYSTEM/SOFT TISSUES: Normal bones and soft tissues. PARANASAL SINUSES/MASTOID AIR CELLS: No significant abnormality. ADDITIONAL FINDINGS: None. IMPRESSION: 1. No acute intracranial abnormality. Signer Name: Chi Meyer MD Signed: 09/11/2021 10:38 PM Workstation Name: [id number] Transcribed By: [place] Dictated By: Chi Meyer MD Electronically Authenticated By: Chi Meyer MD Signed Date/Time: 09/11/212237 DD/ 35 TD/TT: [address] [address] Vascular Lab Report Signed Patient: JORDY VIDAL MR#: [id number] : 1990 Acct:[id number] Age/Sex: 30 / F ADM Date: 09/11/21 Loc: ED Attending Dr: Ordering Physician: CLARICE TURCIOS MD Date of Service: 09/11/21 Procedure(s): VL venous duplex LE RT Accession Number(s): [id number] cc: CLARICE TURCIOS MD DUPLEX DOPPLER LOWER EXTREMITY VEINS, RIGHT INDICATION / CLINICAL INFORMATION: Pain. TECHNIQUE: Duplex doppler imaging was performed through the veins of the right lower extremity using venous compression and other maneuvers. COMPARISON: None available. FINDINGS: RIGHT COMMON FEMORAL VEIN: Negative. RIGHT FEMORAL VEIN: Negative. RIGHT POPLITEAL VEIN: Negative. RIGHT CALF VEINS: Negative. ADDITIONAL FINDINGS: None. IMPRESSION: 1. No sonographic evidence for DVT in the right lower extremity. Signer Name: Melanie Card II, MD Signed: 09/11/2021 11:50 PM Workstation Name: [id number] Transcribed By: YANETH Dictated By: MELANIE CARD II, MD Electronically Authenticated By: MELANIE CARD II, MD Signed Date/Time: 09/11/212349 DD/ 49 TD/TT: - Differential Diagnosis DVT, muscle cramp, headache, hypertensive urgency, hypertensive emergency Critical care attestation.: If time is entered above; I have spent that time in minutes in the direct care of this critically ill patient, excluding procedure time. ED Disposition Clinical Impression: Hypertension, Right calf pain Disposition: 01 HOME / SELF CARE / HOMELESS Is pt being admited?: No Does the pt Need Aspirin: No Condition: Stable Instructions: Hypertension (ED), Hypertension, Adult, [id number] Additional Instructions: Return to the emergency department should you develop worsening symptoms, inability to tolerate food or liquids, high fever or any other concerns Prescriptions: amLODIPine 5 mg PO DAILY #30 tab Ibuprofen [Motrin 800 MG tab] 800 mg PO Q8HR PRN #20 tablet PRN Reason: Pain, Moderate (4-6) Referrals: WANDER AGUILAR MD [Staff Physician] - 3-5 Days Time of Disposition: 00:55
--- NOTE | 2021-09-11 22:42 | Cat Scan Report ---
CT HEAD WITHOUT CONTRAST INDICATION / CLINICAL INFORMATION: Lightheadedness / Headache. TECHNIQUE: All CT scans at this location are performed using CT dose reduction for ALARA by means of automated exposure control. COMPARISON: None available. FINDINGS: BRAIN PARENCHYMA: No acute intracranial hemorrhage. No evidence of recent infarct. No mass effect or midline shift. VENTRICULAR SYSTEM/EXTRA-AXIAL SPACES: Ventricles are normal for age. No extra-axial fluid collection . ORBITS: Normal as visualized. SKELETAL SYSTEM/SOFT TISSUES: Normal bones and soft tissues. PARANASAL SINUSES/MASTOID AIR CELLS: No significant abnormality. ADDITIONAL FINDINGS: None. IMPRESSION: 1. No acute intracranial abnormality. Signer Name: Chi Meyer MD Signed: 09/11/2021 10:38 PM Workstation Name: [id number]
[2021-09-11 22:51] LABS: Basophils # (Auto) 0.1 K/mm3 (0.0-0.1); Basophils % (Auto) 1.2 % (0.0-1.8); Eosinophils # (Auto) 0.1 K/mm3 (0.0-0.4); Eosinophils % (Auto) 1.3 % (0.0-4.3); Lymphocytes # (Auto) 2.8 K/mm3 (1.2-5.4); Lymphocytes % (Auto) 33.6 % (13.4-35.0); Mean Corpuscular HGB Conc 30 % (30-34); Monocytes # (Auto) 0.5 K/mm3 (0.0-0.8); Monocytes % (Auto) 5.9 % (0.0-7.3); Platelet Count 390 K/mm3 (140-440); Red Blood Count 6.93 M/mm3 (3.65-5.03); Red Cell Distribution Width 15.8 % (13.2-15.2)
[2021-09-11 22:53] LABS: Hematocrit 40.2 % (30.3-42.9); Hemoglobin 12.2 gm/dl (10.1-14.3); Mean Corpuscular Volume 58 fl (79-97)
--- NOTE | 2021-09-11 23:54 | Vascular Lab Report ---
DUPLEX DOPPLER LOWER EXTREMITY VEINS, RIGHT INDICATION / CLINICAL INFORMATION: Pain. TECHNIQUE: Duplex doppler imaging was performed through the veins of the right lower extremity using venous compression and other maneuvers. COMPARISON: None available. FINDINGS: RIGHT COMMON FEMORAL VEIN: Negative. RIGHT FEMORAL VEIN: Negative. RIGHT POPLITEAL VEIN: Negative. RIGHT CALF VEINS: Negative. ADDITIONAL FINDINGS: None. IMPRESSION: 1. No sonographic evidence for DVT in the right lower extremity. Signer Name: Garry Navarro II, MD Signed: 09/11/2021 11:50 PM Workstation Name: [id number]
[2021-09-12] MEDS ORDERED: amLODIPine 5 MG TAB PO ONE (00:01)
[2021-09-12 00:10] LABS: BUN/Creatinine Ratio 13; Blood Urea Nitrogen 10 mg/dL (7-17); Calcium 9.8 mg/dL (8.4-10.2); Hemolysis Index 0
[2021-09-12 01:36] VITALS: BP 158/107
== END 2021-09-12 03:41 | disposition home or self-care (01) ==
LOC: ED 14:02
DX: M79.661 Pain in right lower leg (principal); I10 Essential (primary) hypertension; E11.9 Type 2 diabetes mellitus without complications; Z87.891 Personal history of nicotine dependence
CPT/HCPCS: 36415; 70450; 80048; 82805; 85025; 99284